=== PATIENT | female | born 1950 | race African-American/Black ===

== ENCOUNTER → 2017-04-12 | Outpatient (CLI) | payer MEDICARE ==
[~2017-04-12] VITALS: Ht 170.2 cm; Wt 61.0 kg
[~2017-04-12] MED LIST: AMIT25TA9 PO; AMLO-512 PO; ASPI-556 PO; AUD NEB; BUME1TAB30 PO; CARV25 PO; CLOP75 PO; COMBISP IH; DOCU250C91 PO; EXEM25 PO; FLUT1AER PO; LOSA50TA37 PO; PERCT10 PO; PREG50 PO; ROSU20 PO; SPIR25 PO; TIOT185 IH; ZOLP10 PO
[2017-04-12 11:57] VITALS: BP 86/61
== END | disposition home or self-care (01) ==
LOC: SRCNTR 11:40
PROVIDERS: ATTEND Internal Medicine
DX: I11.0 Hypertensive heart disease with heart failure (principal); I50.9 Heart failure, unspecified; G47.33 Obstructive sleep apnea (adult) (pediatric); I25.10 Atherosclerotic heart disease of native coronary artery without angina pectoris; C50.919 Malignant neoplasm of unspecified site of unspecified female breast; J44.1 Chronic obstructive pulmonary disease with (acute) exacerbation; Z95.5 Presence of coronary angioplasty implant and graft
CPT/HCPCS: G0463

== ENCOUNTER → 2017-05-24 | Outpatient (CLI) | payer MEDICARE | END | disposition home or self-care (01) | LOC: RESP 13:53 | PROVIDERS: ATTEND Internal Medicine | DX: J44.9 Chronic obstructive pulmonary disease, unspecified (principal) | CPT/HCPCS: 94010; 94726; 94727; 94729 ==

== ENCOUNTER 2017-07-20 07:53 | Inpatient (IN) | payer MEDICARE ==
[~2017-07-20] VITALS: Ht 165.1 cm; Wt 76.4 kg
[~2017-07-20 07:53] MED LIST changes: +ACET-2902 PO; +APIX5TAB PO; +BISA5TAB12 PO; +BUDE0.5A3 NEB; -BUME1TAB30 PO; +DIGO125T PO; +FAMO20 PO; -FLUT1AER PO; +FURO40TA5 PO; +HYDR-305 PO; +HYDR25TA84 PO; +ISOS60TA4 PO; -LOSA50TA37 PO; -PERCT10 PO; +PRED1 PO; +SENN-175 PO; -SPIR25 PO; -TIOT185 IH; -ZOLP10 PO; +ZOLP10TA7 PO
[2017-07-20] MEDS ORDERED: ATOR40TA28 PO (08:05)
[2017-07-20] MEDS ORDERED: PERCT PO (08:05)
[2017-07-20] MEDS ORDERED: LOSA50TA37 PO (08:05)
[2017-07-20] MEDS ORDERED: NORT10 PO (08:05)
[2017-07-20] MEDS ORDERED: AMOX1TAB16 PO (08:05)
[2017-07-20] MEDS ORDERED: SPIR25 PO (08:06)
[2017-07-20] MEDS ORDERED: ROSU20 PO (08:06)
[2017-07-20] MEDS ORDERED: PROPOFOL 1000 MG/ISO-OSM 100 ML IV PRN (08:15)
[2017-07-20 08:16] LABS: BASOPHILS % (AUTO) 0.2 % (0.0-2.0); EOSINOPHILS % (AUTO) 0.3 % (1.0-6.0); HEMATOCRIT 38.1 % (36-46); HEMOGLOBIN 12.3 g/dL (12.0-16.0); LYMPHOCYTES % (AUTO) 25.1 % (22.0-44.0); MEAN CORPUSCULAR HEMOGLOBIN 33.6 pg (26.0-34.0); MEAN CORPUSCULAR HGB CONC 32.2 G/dL (31.0-37.0); MEAN CORPUSCULAR VOLUME 104 fL (80-100); NEUTROPHILS # (AUTO) 13.9 K/uL (1.8-7.7); NEUTROPHILS % (AUTO) 69.4 % (40.0-70.0); PLATELET COUNT (AUTO) 182 K/uL (150-450); RED BLOOD CELL COUNT(AUTO) 3.66 MIL/uL (4.00-5.20); RED CELL DISTRIBUTION WIDTH 15.2 % (11.5-14.5); WHITE BLOOD COUNT (AUTO) 20.1 K/uL (4.5-11.0)
[2017-07-20 08:23] LABS: RBC MORPHOLOGY COMMENT ABNORMAL RBC MORPH
[2017-07-20 08:28] LABS: INR 1.2 (0.9-1.1); PROTHROMBIN TIME 12.7 SEC (9.4-11.6)
[2017-07-20 08:30] LABS: ANION GAP 13 mmol/L (8-16); CALCIUM, TOTAL 8.5 mg/dL (8.8-10.5); CARBON DIOXIDE 25 mmol/L (22-29); CHLORIDE 105 mmol/L (98-107); CREATININE 1.27 mg/dL (0.60-1.30); GLOMERULAR FILTR. RATE CALC 51 mL/min (>60); SODIUM SERUM 143 mmol/L (136-145); UREA NITROGEN, BLOOD 19 mg/dL (7-18)
[2017-07-20 08:37] LABS: B-TYPE NATRIURETIC PEPTIDE 1590 pg/mL (0-100)
[2017-07-20 08:58] LABS: ALANINE AMINOTRANSFERASE 219 U/L (12-78); ALBUMIN 2.5 g/dL (3.4-5.0); ASPARTATE AMINOTRANSFERASE 177 U/L (15-37); BILIRUBIN,TOTAL 0.5 mg/dL (0.1-1.0); CREATINE KINASE MB 3.4 ng/mL (0-5); CREATINE KINASE, TOTAL 79 U/L (26-192); TOTAL PROTEIN, SERUM 5.2 g/dL (6.4-8.2)
[2017-07-20] MEDS ORDERED: ALBUTEROL SULFATE 5 MG/ML 20 ML NEB SOLN [BULK] NEB ONE (09:00)
[2017-07-20] MEDS ORDERED: IPRATROPIUM BROMIDE 0.5 MG/2.5 ML NEB SOLUTION NEB ONE (09:00)
[2017-07-20] MEDS ORDERED: 0.9% SODIUM CHLORIDE 5 ML NEB SOLUTION NEB ONE (09:01)
[2017-07-20] MEDS ORDERED: PIPERACILLIN/TAZO 3.375 GM/D5W 50 ML IV ONE (09:15)
[2017-07-20] MEDS ORDERED: VANCOMYCIN HCL 1 GM/D5% WATER 200 ML IV ONE (09:15)
[2017-07-20 09:36] LABS: APPEARANCE,URINE CLOUDY (CLEAR); GLUCOSE, URINE (UA) 250 mg/dL (NEGATIVE); KETONES,URINE NEGATIVE (NEGATIVE); LEUKOCYTE ESTERASE ,URINE TRACE (NEGATIVE); OCCULT BLOOD,URINE LARGE (NEGATIVE); PROTEIN,URINE SEE CONFIRM (NEGATIVE)
[2017-07-20 09:41] LABS: ADD UA MICROSCOPIC YES
[2017-07-20 09:47] LABS: RBC,URINE >100 /HPF (0-2); SULFOSALICYLIC ACID,URINE 3+ (Negative)
[2017-07-20 09:48] LABS: TRANSITIONAL EPI CELLS,URINE Few /LPF (None Seen)
[2017-07-20 09:49] LABS: COARSE GRANULAR CASTS,URINE 0-2 /LPF (None Seen)
[2017-07-20] MEDS ORDERED: MIDAZOLAM HCL 100 MG in DEXTROSE 5%-WATER 180 ML IV PRN (09:52)
[2017-07-20 10:00] LABS: LACTIC ACID 11.6 mmol/L (0.4-2.0)
[2017-07-20] MEDS ORDERED: DEXTROSE 50%-WATER 25 GM/50 ML SYRINGE IVP PRN (10:15)
[2017-07-20] MEDS: ASPIRIN 81 MG CHEWABLE TABLET PO SCH (10:15)
[2017-07-20 10:27] LABS: ABG A-A DIFF O2 486.4 mmHg (10-20.0); ABG BASE EXCESS -2.7 mmol/L (-2.0-3.0); ABG HCO3 20.6 mmol/L (22.0-26.0); ABG OXYHEMOGLOBIN 96.3 % (94.0-100.0); ABG PCO2 89 mmHg (35-45); ABG PH 7.097 (7.35-7.450); ALLEN TEST, BLOOD GAS Positive; TEMPERATURE, FAHRENHEIT, BG 98.1 FAHREN (96.0-98.6)
[2017-07-20] MEDS: FentaNYL CITRATE PF 500 MCG in DEXTROSE 5%-WATER 90 ML IV PRN ×2 (10:29→23:58)
[2017-07-20] MEDS: ATORVASTATIN CALCIUM 20 MG TABLET PO SCH (10:57)
[2017-07-20 11:11] LABS: REFLEX LACTIC ACID? YES YES
[2017-07-20] MEDS ORDERED: SODIUM CHLORIDE 0.9% 1,000 ML IV ONE (12:00)
[2017-07-20] MEDS: MethylPREDNISolone SOD SUCC 125 MG/2 ML VIAL IVP SCH ×3 (12:00→23:57)
[2017-07-20 12:04] LABS: CREATINE KINASE MB 6.2 ng/mL (0-5)
[2017-07-20 13:24] VITALS: BP 116/25
[2017-07-20 14:00] VITALS: BP 124/44
[2017-07-20 15:59] LABS: ABG A-A DIFF O2 466.9 mmHg (10-20.0); ABG BASE EXCESS -3.8 mmol/L (-2.0-3.0); ABG HCO3 19.9 mmol/L (22.0-26.0); ABG OXYHEMOGLOBIN 98.7 % (94.0-100.0); TEMPERATURE, FAHRENHEIT, BG 92.1 FAHREN (96.0-98.6)
[2017-07-20 16:00] VITALS: BP 142/40
[2017-07-20 16:00] LABS: ABG PCO2 73 mmHg (35-45); ABG PH 7.144 (7.35-7.450); ALLEN TEST, BLOOD GAS Positive
[2017-07-20] MEDS ORDERED: SODIUM CHLORIDE 0.9% 250 ML IV ONE (16:15)
[2017-07-20] MEDS: PIPERACILLIN/TAZO 3.375 GM/D5W 50 ML IV SCH ×2 (16:32→22:20)
[2017-07-20] MEDS: PROPOFOL 1000 MG/ISO-OSM 100 ML IV PRN ×2 (16:36→22:21)
[2017-07-20] MEDS ORDERED: PNEUMOCOCCAL VACCINE POLYVALENT 0.5 ML VIAL [PPSV23] IM ONE (17:00)
[2017-07-20 17:15] LABS: ALANINE AMINOTRANSFERASE 299 U/L (12-78); ALBUMIN 2.9 g/dL (3.4-5.0); ANION GAP 3 mmol/L (8-16); ASPARTATE AMINOTRANSFERASE 134 U/L (15-37); BILIRUBIN,TOTAL 0.5 mg/dL (0.1-1.0); CALCIUM, TOTAL 8.2 mg/dL (8.8-10.5); CARBON DIOXIDE 32 mmol/L (22-29); CHLORIDE 108 mmol/L (98-107); CREATININE 0.83 mg/dL (0.60-1.30); GLOMERULAR FILTR. RATE CALC > 60 mL/min (>60); PHOSPHORUS 4.6 mg/dL (2.5-4.9); POTASSIUM 4.4 mmol/L (3.5-5.1); SODIUM SERUM 143 mmol/L (136-145); TOTAL PROTEIN, SERUM 5.7 g/dL (6.4-8.2); UREA NITROGEN, BLOOD 21 mg/dL (7-18)
[2017-07-20 18:00] VITALS: BP 96/60
[2017-07-20 19:25] LABS: CREATINE KINASE MB 9.6 ng/mL (0-5)
[2017-07-20 20:00] VITALS: BP 110/60
[2017-07-20 20:10] LABS: ABG A-A DIFF O2 351.2 mmHg (10-20.0); ABG BASE EXCESS -2.6 mmol/L (-2.0-3.0); ABG HCO3 22.5 mmol/L (22.0-26.0); ABG OXYHEMOGLOBIN 97.1 % (94.0-100.0); ABG PCO2 39 mmHg (35-45); ABG PH 7.376 (7.35-7.450); TEMPERATURE, FAHRENHEIT, BG 96.8 FAHREN (96.0-98.6)
[2017-07-20 20:11] LABS: ALLEN TEST, BLOOD GAS Positive
[2017-07-20 20:12] LABS: INSIPIRATORY PRESSURE, BG 26 cm H2O
[2017-07-20] MEDS: DOCUSATE SODIUM 100 MG CAPSULE PO SCH (22:20)
[2017-07-20 23:06] LABS: ALANINE AMINOTRANSFERASE 227 U/L (12-78); ALBUMIN 2.8 g/dL (3.4-5.0); ANION GAP 7 mmol/L (8-16); ASPARTATE AMINOTRANSFERASE 79 U/L (15-37); BILIRUBIN,TOTAL 0.7 mg/dL (0.1-1.0); CALCIUM, TOTAL 8.6 mg/dL (8.8-10.5); CARBON DIOXIDE 30 mmol/L (22-29); CHLORIDE 107 mmol/L (98-107); CREATININE 0.73 mg/dL (0.60-1.30); GLOMERULAR FILTR. RATE CALC > 60 mL/min (>60); PHOSPHORUS 4.5 mg/dL (2.5-4.9); POTASSIUM 4.1 mmol/L (3.5-5.1); SODIUM SERUM 144 mmol/L (136-145); TOTAL PROTEIN, SERUM 5.5 g/dL (6.4-8.2); UREA NITROGEN, BLOOD 19 mg/dL (7-18)
[2017-07-21] VITALS: BP 104/70
[2017-07-21 03:40] LABS: CREATINE KINASE MB 12.2 ng/mL (0-5); CREATINE KINASE, TOTAL 127 U/L (26-192)
[2017-07-21 04:00] VITALS: BP 118/74
[2017-07-21] MEDS: MethylPREDNISolone SOD SUCC 125 MG/2 ML VIAL IVP SCH ×3 (04:53→17:11)
[2017-07-21] MEDS: PIPERACILLIN/TAZO 3.375 GM/D5W 50 ML IV SCH ×4 (04:53→22:27)
[2017-07-21 04:59] LABS: HEMATOCRIT 41.3 % (36-46); HEMOGLOBIN 13.9 g/dL (12.0-16.0); MEAN CORPUSCULAR HEMOGLOBIN 33.8 pg (26.0-34.0); MEAN CORPUSCULAR HGB CONC 33.6 G/dL (31.0-37.0); MEAN CORPUSCULAR VOLUME 101 fL (80-100); PLATELET COUNT (AUTO) 151 K/uL (150-450); RED CELL DISTRIBUTION WIDTH 14.7 % (11.5-14.5); WHITE BLOOD COUNT (AUTO) 27.1 K/uL (4.5-11.0)
[2017-07-21 05:45] LABS: ALANINE AMINOTRANSFERASE 181 U/L (12-78); ANION GAP 18 mmol/L (8-16); ASPARTATE AMINOTRANSFERASE 68 U/L (15-37); BILIRUBIN,TOTAL 0.9 mg/dL (0.1-1.0); CARBON DIOXIDE 22 mmol/L (22-29); CHLORIDE 108 mmol/L (98-107); POTASSIUM 4.3 mmol/L (3.5-5.1); SODIUM SERUM 148 mmol/L (136-145); TOTAL PROTEIN, SERUM 5.5 g/dL (6.4-8.2)
[2017-07-21] MEDS ORDERED: ALBUMIN HUMAN 25%-12.5GM/50ML 100 ML ONE (05:48)
[2017-07-21 05:53] LABS: ABG A-A DIFF O2 275.7 mmHg (10-20.0); ABG BASE EXCESS -1.6 mmol/L (-2.0-3.0); ABG HCO3 22.7 mmol/L (22.0-26.0); ABG OXYHEMOGLOBIN 92.4 % (94.0-100.0); ABG PCO2 47 mmHg (35-45); ABG PH 7.334 (7.35-7.450); TEMPERATURE, FAHRENHEIT, BG 96.8 FAHREN (96.0-98.6)
[2017-07-21 05:55] LABS: PHOSPHORUS 4.4 mg/dL (2.5-4.9); THYROID STIMULATING HORMONE 0.13 uIU/mL (0.36-3.74)
[2017-07-21 05:55] LABS: ALLEN TEST, BLOOD GAS Positive
[2017-07-21] MEDS ORDERED: ALBUMIN HUMAN 25%-25GM/100ML 100 ML IV ONE (06:00)
[2017-07-21 06:08] LABS: ALBUMIN 2.8 g/dL (3.4-5.0); CALCIUM, TOTAL 8.4 mg/dL (8.8-10.5); CREATININE 0.83 mg/dL (0.60-1.30); GLOMERULAR FILTR. RATE CALC > 60 mL/min (>60); UREA NITROGEN, BLOOD 20 mg/dL (7-18)
[2017-07-21] MEDS: ALBUMIN HUMAN 25%-12.5GM/50ML 50 ML IV SCH ×4 (06:31→17:09)
[2017-07-21 08:00] VITALS: BP 153/107
[2017-07-21] MEDS ORDERED: VANCOMYCIN HCL 1.25 GM in DEXTROSE 5%-WATER 250 ML IV SCH (08:00)
[2017-07-21 08:01] LABS: BAND NEUTROPHILS % (MANUAL) 21 % (1-5); LYMPHOCYTES % (MANUAL) 11 % (22-44); TOTAL CELLS COUNTED 100
[2017-07-21] MEDS: FentaNYL CITRATE PF 500 MCG in DEXTROSE 5%-WATER 90 ML IV PRN ×2 (09:23→21:30)
[2017-07-21] MEDS: PANTOPRAZOLE SODIUM 40 MG/VIAL IVP SCH (09:24)
[2017-07-21] MEDS: VANCOMYCIN HCL 1 GM/D5% WATER 200 ML IV SCH ×2 (09:24→20:24)
[2017-07-21] MEDS: ATORVASTATIN CALCIUM 20 MG TABLET PO SCH (09:24)
[2017-07-21] MEDS: DOCUSATE SODIUM 100 MG CAPSULE PO SCH ×2 (09:25→20:24)
[2017-07-21] MEDS: ASPIRIN 81 MG CHEWABLE TABLET PO SCH (09:25)
[2017-07-21] MEDS: ENOXAPARIN SODIUM 40 MG/0.4 ML PF SYRINGE SQ SCH (09:25)
[2017-07-21 09:44] LABS: ABG A-A DIFF O2 288.1 mmHg (10-20.0); ABG BASE EXCESS 2.9 mmol/L (-2.0-3.0); ABG HCO3 25.9 mmol/L (22.0-26.0); ABG OXYHEMOGLOBIN 91.6 % (94.0-100.0); ABG PCO2 50 mmHg (35-45); ABG PH 7.369 (7.35-7.450); ALLEN TEST, BLOOD GAS Positive; TEMPERATURE, FAHRENHEIT, BG 92.3 FAHREN (96.0-98.6)
[2017-07-21 09:45] LABS: INSIPIRATORY PRESSURE, BG 26 cm H2O
[2017-07-21] MEDS ORDERED: SODIUM CHLORIDE 0.9% 500 ML IV ONE (10:13)
[2017-07-21 11:22] LABS: ALANINE AMINOTRANSFERASE 183 U/L (12-78); ALBUMIN 3.3 g/dL (3.4-5.0); ANION GAP 8 mmol/L (8-16); ASPARTATE AMINOTRANSFERASE 41 U/L (15-37); BILIRUBIN,TOTAL 1.1 mg/dL (0.1-1.0); CALCIUM, TOTAL 8.6 mg/dL (8.8-10.5); CARBON DIOXIDE 32 mmol/L (22-29); CHLORIDE 106 mmol/L (98-107); CREATININE 0.88 mg/dL (0.60-1.30); GLOMERULAR FILTR. RATE CALC > 60 mL/min (>60); POTASSIUM 4.2 mmol/L (3.5-5.1); SODIUM SERUM 146 mmol/L (136-145); TOTAL PROTEIN, SERUM 5.9 g/dL (6.4-8.2); UREA NITROGEN, BLOOD 19 mg/dL (7-18)
[2017-07-21 12:00] VITALS: BP 121/41
[2017-07-21] MEDS: BUDESONIDE 0.5 MG/2 ML NEB SOLUTION NEB SCH ×2 (12:02→21:21)
[2017-07-21 12:23] LABS: ABG A-A DIFF O2 365.4 mmHg (10-20.0); ABG BASE EXCESS -0.8 mmol/L (-2.0-3.0); ABG HCO3 23.6 mmol/L (22.0-26.0); ABG OXYHEMOGLOBIN 96.7 % (94.0-100.0); ABG PCO2 41 mmHg (35-45); ABG PH 7.388 (7.35-7.450); ALLEN TEST, BLOOD GAS Positive; TEMPERATURE, FAHRENHEIT, BG 94.2 FAHREN (96.0-98.6)
[2017-07-21 12:24] LABS: INSIPIRATORY PRESSURE, BG 26 cm H2O
[2017-07-21] MEDS: NOREPINEPHRINE 4 MG/D5%-WATER 250 ML IV PRN (14:11)
[2017-07-21 16:00] VITALS: BP 133/43
[2017-07-21] MEDS: PROPOFOL 1000 MG/ISO-OSM 100 ML IV PRN ×2 (17:11→22:27)
[2017-07-21 17:31] LABS: ALANINE AMINOTRANSFERASE 166 U/L (12-78); ALBUMIN 3.6 g/dL (3.4-5.0); ANION GAP 12 mmol/L (8-16); ASPARTATE AMINOTRANSFERASE 35 U/L (15-37); BILIRUBIN,TOTAL 1.1 mg/dL (0.1-1.0); CARBON DIOXIDE 29 mmol/L (22-29); CHLORIDE 104 mmol/L (98-107); CREATININE 0.74 mg/dL (0.60-1.30); GLOMERULAR FILTR. RATE CALC > 60 mL/min (>60); PHOSPHORUS 4.9 mg/dL (2.5-4.9); POTASSIUM 4.2 mmol/L (3.5-5.1); SODIUM SERUM 145 mmol/L (136-145); TOTAL PROTEIN, SERUM 6.2 g/dL (6.4-8.2); UREA NITROGEN, BLOOD 20 mg/dL (7-18)
[2017-07-21 20:00] VITALS: BP 143/76
[2017-07-21] MEDS ORDERED: ONDANSETRON HCL 4 MG/2 ML VIAL IVP PRN (20:15)
[2017-07-22] VITALS: BP 138/81
[2017-07-22] MEDS ORDERED: SODIUM CHLORIDE 0.9% 250 ML IV ONE ×3 (00:01→21:30)
[2017-07-22] MEDS: MethylPREDNISolone SOD SUCC 125 MG/2 ML VIAL IVP SCH ×4 (00:05→16:52)
[2017-07-22] MEDS: ALBUMIN HUMAN 25%-12.5GM/50ML 50 ML IV SCH ×4 (00:06→16:52)
[2017-07-22] MEDS: PROPOFOL 1000 MG/ISO-OSM 100 ML IV PRN ×6 (01:28→23:49)
[2017-07-22 04:00] VITALS: BP 134/74
[2017-07-22] MEDS: PIPERACILLIN/TAZO 3.375 GM/D5W 50 ML IV SCH ×4 (04:27→21:36)
[2017-07-22 06:16] LABS: ANION GAP 10 mmol/L (8-16); CALCIUM, TOTAL 8.7 mg/dL (8.8-10.5); CARBON DIOXIDE 30 mmol/L (22-29); CHLORIDE 103 mmol/L (98-107); CREATININE 0.83 mg/dL (0.60-1.30); GLOMERULAR FILTR. RATE CALC > 60 mL/min (>60); POTASSIUM 3.1 mmol/L (3.5-5.1); SODIUM SERUM 143 mmol/L (136-145); UREA NITROGEN, BLOOD 20 mg/dL (7-18)
[2017-07-22] MEDS: FentaNYL CITRATE PF 500 MCG in DEXTROSE 5%-WATER 90 ML IV PRN ×3 (06:21→18:17)
[2017-07-22 08:00] VITALS: BP 159/89
[2017-07-22] MEDS: BUDESONIDE 0.5 MG/2 ML NEB SOLUTION NEB SCH ×2 (08:10→21:32)
[2017-07-22] MEDS: VANCOMYCIN HCL 1 GM/D5% WATER 200 ML IV SCH ×2 (09:20→19:36)
[2017-07-22] MEDS: POTASSIUM CHLORIDE 20 MEQ ER TABLET PO PRN ×2 (09:22→16:52)
[2017-07-22] MEDS: DOCUSATE SODIUM 100 MG CAPSULE PO SCH ×2 (09:22→21:36)
[2017-07-22] MEDS: ENOXAPARIN SODIUM 40 MG/0.4 ML PF SYRINGE SQ SCH (09:22)
[2017-07-22] MEDS: ATORVASTATIN CALCIUM 20 MG TABLET PO SCH (09:22)
[2017-07-22] MEDS: ASPIRIN 81 MG CHEWABLE TABLET PO SCH (09:22)
[2017-07-22] MEDS: PANTOPRAZOLE SODIUM 40 MG/VIAL IVP SCH (09:23)
[2017-07-22 10:52] LABS: ABG A-A DIFF O2 230.1 mmHg (10-20.0); ABG BASE EXCESS 3.8 mmol/L (-2.0-3.0); ABG HCO3 28.1 mmol/L (22.0-26.0); ABG OXYHEMOGLOBIN 96.5 % (94.0-100.0); ABG PCO2 33 mmHg (35-45); ABG PH 7.527 (7.35-7.450); TEMPERATURE, FAHRENHEIT, BG 99.5 FAHREN (96.0-98.6)
[2017-07-22 10:53] LABS: ALLEN TEST, BLOOD GAS Positive
[2017-07-22 12:00] VITALS: BP 138/76
[2017-07-22 16:00] VITALS: BP 162/104
[2017-07-22] MEDS ORDERED: POTASSIUM CHLORIDE 20 MEQ ER TABLET PO PRN ×2 (19:15)
[2017-07-22 20:00] VITALS: BP 141/80
[2017-07-22] MEDS: POTASSIUM CHL 10 MEQ/WATER 50 ML IV PRN ×3 (21:36→22:46)
[2017-07-23] VITALS: BP 139/79
[2017-07-23] MEDS: ALBUMIN HUMAN 25%-12.5GM/50ML 50 ML IV SCH ×4 (00:37→17:46)
[2017-07-23] MEDS: MethylPREDNISolone SOD SUCC 125 MG/2 ML VIAL IVP SCH ×4 (00:37→17:46)
[2017-07-23] MEDS: FentaNYL CITRATE PF 500 MCG in DEXTROSE 5%-WATER 90 ML IV PRN ×4 (01:30→20:15)
[2017-07-23] MEDS: PROPOFOL 1000 MG/ISO-OSM 100 ML IV PRN ×5 (03:37→19:42)
[2017-07-23] MEDS: PIPERACILLIN/TAZO 3.375 GM/D5W 50 ML IV SCH ×4 (03:38→22:24)
[2017-07-23 04:00] VITALS: BP 137/82
[2017-07-23 07:07] LABS: ANION GAP 9 mmol/L (8-16); CALCIUM, TOTAL 8.9 mg/dL (8.8-10.5); CARBON DIOXIDE 28 mmol/L (22-29); CHLORIDE 104 mmol/L (98-107); CREATININE 0.76 mg/dL (0.60-1.30); GLOMERULAR FILTR. RATE CALC > 60 mL/min (>60); POTASSIUM 3.4 mmol/L (3.5-5.1); SODIUM SERUM 141 mmol/L (136-145); UREA NITROGEN, BLOOD 20 mg/dL (7-18)
[2017-07-23 08:00] VITALS: BP 142/90
[2017-07-23] MEDS: ENOXAPARIN SODIUM 40 MG/0.4 ML PF SYRINGE SQ SCH (08:22)
[2017-07-23] MEDS: ASPIRIN 81 MG CHEWABLE TABLET PO SCH (08:22)
[2017-07-23] MEDS: ATORVASTATIN CALCIUM 20 MG TABLET PO SCH (08:22)
[2017-07-23] MEDS: DOCUSATE SODIUM 100 MG CAPSULE PO SCH ×2 (08:22→20:00)
[2017-07-23] MEDS: VANCOMYCIN HCL 1 GM/D5% WATER 200 ML IV SCH ×2 (08:22→20:00)
[2017-07-23] MEDS: PANTOPRAZOLE SODIUM 40 MG/VIAL IVP SCH (08:22)
[2017-07-23] MEDS: POTASSIUM CHL 10 MEQ/WATER 50 ML IV PRN ×5 (08:47→16:55)
[2017-07-23] MEDS: BUDESONIDE 0.5 MG/2 ML NEB SOLUTION NEB SCH ×2 (08:52→19:32)
[2017-07-23 10:55] LABS: TEMPERATURE, FAHRENHEIT, BG 98.6 FAHREN (96.0-98.6)
[2017-07-23 11:40] LABS: ABG BASE EXCESS 2.8 mmol/L (-2.0-3.0); ABG HCO3 26.8 mmol/L (22.0-26.0); ABG OXYHEMOGLOBIN 94.2 % (94.0-100.0); ABG PCO2 40 mmHg (35-45); ABG PH 7.448 (7.35-7.450)
[2017-07-23 11:41] LABS: ALLEN TEST, BLOOD GAS Positive
[2017-07-23 11:42] LABS: INSIPIRATORY PRESSURE, BG 22 cm H2O
[2017-07-23 12:00] VITALS: BP 154/90
[2017-07-23 16:00] VITALS: BP 136/81
[2017-07-23] MEDS: INSULIN REGULAR, HUMAN 100 UNITS/ML SQ PRN (17:47)
[2017-07-23] MEDS ORDERED: SODIUM CHLORIDE 0.9% 250 ML IV ONE ×2 (18:04→18:05)
[2017-07-23] MEDS ORDERED: 0.9% SODIUM CHLORIDE 5 ML NEB SOLUTION NEB ONE (19:29)
[2017-07-23 20:00] VITALS: BP 154/99
[2017-07-24] VITALS: BP 142/84
[2017-07-24] MEDS: MethylPREDNISolone SOD SUCC 125 MG/2 ML VIAL IVP SCH ×5 (00:10→23:26)
[2017-07-24] MEDS: INSULIN REGULAR, HUMAN 100 UNITS/ML SQ PRN ×5 (00:11→23:35)
[2017-07-24] MEDS: ALBUMIN HUMAN 25%-12.5GM/50ML 50 ML IV SCH ×5 (00:11→23:26)
[2017-07-24] MEDS: PROPOFOL 1000 MG/ISO-OSM 100 ML IV PRN ×7 (00:21→23:47)
[2017-07-24 04:00] VITALS: BP 133/78
[2017-07-24] MEDS: FentaNYL CITRATE PF 500 MCG in DEXTROSE 5%-WATER 90 ML IV PRN ×4 (04:02→20:52)
[2017-07-24] MEDS: PIPERACILLIN/TAZO 3.375 GM/D5W 50 ML IV SCH ×4 (04:03→21:55)
[2017-07-24 05:06] LABS: EOSINOPHILS % (AUTO) 0 % (1.0-6.0); HEMATOCRIT 29.5 % (36-46); HEMOGLOBIN 9.8 g/dL (12.0-16.0); LYMPHOCYTES # (AUTO) 0.7 K/uL (1.0-4.8); LYMPHOCYTES % (AUTO) 2.8 % (22.0-44.0); MEAN CORPUSCULAR HEMOGLOBIN 33.5 pg (26.0-34.0); MEAN CORPUSCULAR HGB CONC 33.4 G/dL (31.0-37.0); MEAN CORPUSCULAR VOLUME 100 fL (80-100); MONOCYTES # (AUTO) 0.8 K/uL (0.1-1.0); MONOCYTES % (AUTO) 3.2 % (2.0-9.0); NEUTROPHILS # (AUTO) 21.7 K/uL (1.8-7.7); PLATELET COUNT (AUTO) 123 K/uL (150-450); RED BLOOD CELL COUNT(AUTO) 2.94 MIL/uL (4.00-5.20); RED CELL DISTRIBUTION WIDTH 15.1 % (11.5-14.5); WHITE BLOOD COUNT (AUTO) 23.1 K/uL (4.5-11.0)
[2017-07-24 05:14] LABS: NEUTROPHILS % (AUTO) 93.9 % (40.0-70.0)
[2017-07-24 05:24] LABS: ANION GAP 5 mmol/L (8-16); CALCIUM, TOTAL 9.2 mg/dL (8.8-10.5); CARBON DIOXIDE 31 mmol/L (22-29); CHLORIDE 104 mmol/L (98-107); CREATININE 0.81 mg/dL (0.60-1.30); GLOMERULAR FILTR. RATE CALC > 60 mL/min (>60); POTASSIUM 3.8 mmol/L (3.5-5.1); SODIUM SERUM 140 mmol/L (136-145); UREA NITROGEN, BLOOD 20 mg/dL (7-18)
[2017-07-24] MEDS: MAGNESIUM HYDROXIDE SUSPENSION 30 ML UDCUP PO PRN (05:57)
[2017-07-24] MEDS: METOCLOPRAMIDE HCL 5 MG/ML 2 ML VIAL IVP SCH ×4 (05:57→23:26)
[2017-07-24 06:48] LABS: RBC MORPHOLOGY COMMENT ABNORMAL RBC MORPH
[2017-07-24 06:52] LABS: GLUCOSE COMMENT 1 Received Meds; GLUCOSE,POINT OF CARE 171 MG/DL (70-110)
[2017-07-24 06:52] LABS: GLUCOSE,POINT OF CARE 167 MG/DL (70-110)
[2017-07-24 08:00] VITALS: BP 106/69
[2017-07-24] MEDS: BUDESONIDE 0.5 MG/2 ML NEB SOLUTION NEB SCH ×2 (08:45→19:35)
[2017-07-24] MEDS: VANCOMYCIN HCL 1 GM/D5% WATER 200 ML IV SCH ×2 (08:49→19:24)
[2017-07-24] MEDS: ENOXAPARIN SODIUM 40 MG/0.4 ML PF SYRINGE SQ SCH (09:04)
[2017-07-24] MEDS: ASPIRIN 81 MG CHEWABLE TABLET PO SCH (09:04)
[2017-07-24] MEDS: POTASSIUM CHL 10 MEQ/WATER 50 ML IV PRN ×2 (09:04→10:12)
[2017-07-24] MEDS: PANTOPRAZOLE SODIUM 40 MG/VIAL IVP SCH (09:04)
[2017-07-24] MEDS: DOCUSATE SODIUM 100 MG CAPSULE PO SCH ×2 (09:05→20:42)
[2017-07-24] MEDS: ATORVASTATIN CALCIUM 20 MG TABLET PO SCH (09:05)
[2017-07-24 12:00] VITALS: BP 136/86
[2017-07-24 16:00] VITALS: BP 154/90
[2017-07-24] MEDS ORDERED: 0.9% SODIUM CHLORIDE 5 ML NEB SOLUTION NEB ONE (19:31)
[2017-07-24 20:00] VITALS: BP 163/98
[2017-07-24 23:52] LABS: GLUCOSE COMMENT 1 Received Meds; GLUCOSE,POINT OF CARE 186 MG/DL (70-110)
[2017-07-25] VITALS: BP 140/78
[2017-07-25] MEDS: FentaNYL CITRATE PF 500 MCG in DEXTROSE 5%-WATER 90 ML IV PRN ×4 (02:32→21:10)
[2017-07-25] MEDS: PIPERACILLIN/TAZO 3.375 GM/D5W 50 ML IV SCH ×4 (03:44→21:36)
[2017-07-25] MEDS: PROPOFOL 1000 MG/ISO-OSM 100 ML IV PRN ×4 (03:46→21:10)
[2017-07-25 04:00] VITALS: BP 132/60
[2017-07-25] MEDS: INSULIN REGULAR, HUMAN 100 UNITS/ML SQ PRN ×2 (04:24→16:39)
[2017-07-25] MEDS: ALBUMIN HUMAN 25%-12.5GM/50ML 50 ML IV SCH ×3 (05:10→17:02)
[2017-07-25] MEDS: MethylPREDNISolone SOD SUCC 125 MG/2 ML VIAL IVP SCH ×3 (05:10→17:02)
[2017-07-25] MEDS: METOCLOPRAMIDE HCL 5 MG/ML 2 ML VIAL IVP SCH ×3 (05:23→17:02)
[2017-07-25 05:29] LABS: HEMATOCRIT 28.6 % (36-46); HEMOGLOBIN 9.6 g/dL (12.0-16.0); MEAN CORPUSCULAR HEMOGLOBIN 33.6 pg (26.0-34.0); MEAN CORPUSCULAR HGB CONC 33.7 G/dL (31.0-37.0); MEAN CORPUSCULAR VOLUME 100 fL (80-100); PLATELET COUNT (AUTO) 119 K/uL (150-450); RED BLOOD CELL COUNT(AUTO) 2.87 MIL/uL (4.00-5.20); WHITE BLOOD COUNT (AUTO) 18.7 K/uL (4.5-11.0)
[2017-07-25 05:47] LABS: ANION GAP 6 mmol/L (8-16); CALCIUM, TOTAL 8.9 mg/dL (8.8-10.5); CARBON DIOXIDE 31 mmol/L (22-29); CHLORIDE 105 mmol/L (98-107); CREATININE 0.74 mg/dL (0.60-1.30); GLOMERULAR FILTR. RATE CALC > 60 mL/min (>60); PHOSPHORUS 3.2 mg/dL (2.5-4.9); POTASSIUM 3.9 mmol/L (3.5-5.1); SODIUM SERUM 142 mmol/L (136-145); UREA NITROGEN, BLOOD 22 mg/dL (7-18)
[2017-07-25 08:00] VITALS: BP 125/75
[2017-07-25] MEDS: VANCOMYCIN HCL 1 GM/D5% WATER 200 ML IV SCH ×2 (08:00→21:07)
[2017-07-25] MEDS: PANTOPRAZOLE SODIUM 40 MG/VIAL IVP SCH (09:35)
[2017-07-25] MEDS: ASPIRIN 81 MG CHEWABLE TABLET PO SCH (09:35)
[2017-07-25] MEDS: DOCUSATE SODIUM 100 MG CAPSULE PO SCH ×2 (09:35→21:07)
[2017-07-25] MEDS: ATORVASTATIN CALCIUM 20 MG TABLET PO SCH (09:35)
[2017-07-25] MEDS: ENOXAPARIN SODIUM 40 MG/0.4 ML PF SYRINGE SQ SCH (09:36)
[2017-07-25] MEDS: BUDESONIDE 0.5 MG/2 ML NEB SOLUTION NEB SCH ×2 (10:16→20:42)
[2017-07-25 10:17] LABS: BAND NEUTROPHILS % (MANUAL) 3 % (1-5); EOSINOPHILS % (MANUAL) 2 % (1-6); LYMPHOCYTES % (MANUAL) 13 % (22-44); TOTAL CELLS COUNTED 100
[2017-07-25 10:18] LABS: RBC MORPHOLOGY COMMENT NORMAL RBC MORPH
[2017-07-25 12:51] VITALS: BP 156/92
[2017-07-25 16:00] VITALS: BP 108/63
[2017-07-25] MEDS ORDERED: SODIUM CHLORIDE 0.9% 250 ML IV ONE (16:22)
[2017-07-25 19:16] LABS: GLUCOSE,POINT OF CARE 169 MG/DL (70-110)
[2017-07-25 20:00] VITALS: BP 128/73
[2017-07-25] MEDS: MAGNESIUM HYDROXIDE SUSPENSION 30 ML UDCUP PO PRN (21:07)
[2017-07-26] VITALS: BP 145/79
[2017-07-26] MEDS: INSULIN REGULAR, HUMAN 100 UNITS/ML SQ PRN ×4 (00:25→18:09)
[2017-07-26] MEDS: MethylPREDNISolone SOD SUCC 125 MG/2 ML VIAL IVP SCH ×4 (00:25→18:08)
[2017-07-26] MEDS: METOCLOPRAMIDE HCL 5 MG/ML 2 ML VIAL IVP SCH ×4 (00:26→17:37)
[2017-07-26] MEDS: ALBUMIN HUMAN 25%-12.5GM/50ML 50 ML IV SCH ×4 (00:27→17:37)
[2017-07-26] MEDS: PROPOFOL 1000 MG/ISO-OSM 100 ML IV PRN ×6 (00:28→21:01)
[2017-07-26] MEDS: FentaNYL CITRATE PF 500 MCG in DEXTROSE 5%-WATER 90 ML IV PRN ×4 (03:01→21:01)
[2017-07-26] MEDS: PIPERACILLIN/TAZO 3.375 GM/D5W 50 ML IV SCH ×4 (03:01→20:59)
[2017-07-26 04:00] VITALS: BP 136/76
[2017-07-26 05:17] LABS: ANION GAP 8 mmol/L (8-16); CALCIUM, TOTAL 9.1 mg/dL (8.8-10.5); CARBON DIOXIDE 31 mmol/L (22-29); CHLORIDE 104 mmol/L (98-107); GLOMERULAR FILTR. RATE CALC > 60 mL/min (>60); PHOSPHORUS 3.3 mg/dL (2.5-4.9); POTASSIUM 3.8 mmol/L (3.5-5.1); SODIUM SERUM 143 mmol/L (136-145); UREA NITROGEN, BLOOD 20 mg/dL (7-18)
[2017-07-26 06:15] LABS: EOSINOPHILS % (AUTO) 0 % (1.0-6.0); HEMATOCRIT 29.6 % (36-46); LYMPHOCYTES # (AUTO) 0.7 K/uL (1.0-4.8); LYMPHOCYTES % (AUTO) 3.1 % (22.0-44.0); MEAN CORPUSCULAR HEMOGLOBIN 33.9 pg (26.0-34.0); MEAN CORPUSCULAR HGB CONC 33.9 G/dL (31.0-37.0); MEAN CORPUSCULAR VOLUME 100 fL (80-100); MONOCYTES # (AUTO) 1.6 K/uL (0.1-1.0); MONOCYTES % (AUTO) 7.1 % (2.0-9.0); NEUTROPHILS # (AUTO) 19.9 K/uL (1.8-7.7); PLATELET COUNT (AUTO) 129 K/uL (150-450); RED BLOOD CELL COUNT(AUTO) 2.96 MIL/uL (4.00-5.20); RED CELL DISTRIBUTION WIDTH 14.9 % (11.5-14.5); WHITE BLOOD COUNT (AUTO) 22.2 K/uL (4.5-11.0)
[2017-07-26 06:16] LABS: NEUTROPHILS % (AUTO) 89.8 % (40.0-70.0)
[2017-07-26] MEDS: VANCOMYCIN HCL 1 GM/D5% WATER 200 ML IV SCH ×2 (07:50→20:59)
[2017-07-26 08:00] VITALS: BP 133/75
[2017-07-26] MEDS: PANTOPRAZOLE SODIUM 40 MG/VIAL IVP SCH (08:48)
[2017-07-26] MEDS: DOCUSATE SODIUM 100 MG CAPSULE PO SCH ×2 (08:48→20:59)
[2017-07-26] MEDS: ASPIRIN 81 MG CHEWABLE TABLET PO SCH (08:48)
[2017-07-26] MEDS: ATORVASTATIN CALCIUM 20 MG TABLET PO SCH (08:48)
[2017-07-26] MEDS: ENOXAPARIN SODIUM 40 MG/0.4 ML PF SYRINGE SQ SCH (08:49)
[2017-07-26] MEDS: BUDESONIDE 0.5 MG/2 ML NEB SOLUTION NEB SCH ×2 (10:05→20:14)
[2017-07-26 12:00] VITALS: BP 169/109
[2017-07-26 13:25] LABS: ABG BASE EXCESS 2.9 mmol/L (-2.0-3.0); ABG HCO3 26.5 mmol/L (22.0-26.0); ABG OXYHEMOGLOBIN 88.2 % (94.0-100.0); ABG PCO2 48 mmHg (35-45); ABG PH 7.386 (7.35-7.450); TEMPERATURE, FAHRENHEIT, BG 99.7 FAHREN (96.0-98.6)
[2017-07-26 13:27] LABS: ALLEN TEST, BLOOD GAS Positive
[2017-07-26 13:28] LABS: INSIPIRATORY PRESSURE, BG 22 cm H2O
[2017-07-26 16:00] VITALS: BP 128/75
[2017-07-26 20:00] VITALS: BP 128/71
[2017-07-26] MEDS ORDERED: SODIUM CHLORIDE 0.9% 250 ML IV ONE (20:15)
[2017-07-27] VITALS (7 sets, daily range): BP systolic 118–148; BP diastolic 66–88
[2017-07-27] MEDS: METOCLOPRAMIDE HCL 5 MG/ML 2 ML VIAL IVP SCH ×5 (00:41→23:40)
[2017-07-27] MEDS: MethylPREDNISolone SOD SUCC 125 MG/2 ML VIAL IVP SCH ×5 (00:41→23:40)
[2017-07-27] MEDS: ALBUMIN HUMAN 25%-12.5GM/50ML 50 ML IV SCH ×5 (00:41→23:41)
[2017-07-27] MEDS: INSULIN REGULAR, HUMAN 100 UNITS/ML SQ PRN ×5 (00:42→23:42)
[2017-07-27] MEDS: PROPOFOL 1000 MG/ISO-OSM 100 ML IV PRN ×5 (02:37→18:37)
[2017-07-27] MEDS: FentaNYL CITRATE PF 500 MCG in DEXTROSE 5%-WATER 90 ML IV PRN ×5 (03:01→22:48)
[2017-07-27] MEDS: PIPERACILLIN/TAZO 3.375 GM/D5W 50 ML IV SCH ×4 (05:27→21:45)
[2017-07-27 07:34] LABS: ANION GAP 8 mmol/L (8-16); CARBON DIOXIDE 31 mmol/L (22-29); CHLORIDE 104 mmol/L (98-107); CREATININE 0.71 mg/dL (0.60-1.30); GLOMERULAR FILTR. RATE CALC > 60 mL/min (>60); POTASSIUM 3.6 mmol/L (3.5-5.1); SODIUM SERUM 143 mmol/L (136-145); UREA NITROGEN, BLOOD 21 mg/dL (7-18)
[2017-07-27] MEDS: VANCOMYCIN HCL 1 GM/D5% WATER 200 ML IV SCH ×2 (08:09→19:13)
[2017-07-27] MEDS: ASPIRIN 81 MG CHEWABLE TABLET PO SCH (08:10)
[2017-07-27] MEDS: ATORVASTATIN CALCIUM 20 MG TABLET PO SCH (08:10)
[2017-07-27] MEDS: DOCUSATE SODIUM 100 MG CAPSULE PO SCH ×2 (08:10→21:02)
[2017-07-27] MEDS: PANTOPRAZOLE SODIUM 40 MG/VIAL IVP SCH (08:10)
[2017-07-27] MEDS: ENOXAPARIN SODIUM 40 MG/0.4 ML PF SYRINGE SQ SCH (08:10)
[2017-07-27] MEDS: BUDESONIDE 0.5 MG/2 ML NEB SOLUTION NEB SCH ×2 (09:19→19:46)
[2017-07-27 09:51] LABS: ABG A-A DIFF O2 188.9 mmHg (10-20.0); ABG BASE EXCESS 8.7 mmol/L (-2.0-3.0); ABG HCO3 31.3 mmol/L (22.0-26.0); ABG PCO2 52 mmHg (35-45); ABG PH 7.425 (7.35-7.450); ALLEN TEST, BLOOD GAS Positive
[2017-07-27 09:52] LABS: INSIPIRATORY PRESSURE, BG 22 cm H2O
[2017-07-27] MEDS ORDERED: SODIUM CHLORIDE 0.9% 250 ML IV ONE (09:57)
[2017-07-27] MEDS: POTASSIUM CHL 10 MEQ/WATER 50 ML IV PRN ×3 (11:03→12:37)
[2017-07-28] VITALS (9 sets, daily range): BP systolic 119–157; BP diastolic 66–93
[2017-07-28] MEDS: PROPOFOL 1000 MG/ISO-OSM 100 ML IV PRN ×6 (01:07→22:09)
[2017-07-28] MEDS: PIPERACILLIN/TAZO 3.375 GM/D5W 50 ML IV SCH ×4 (03:48→22:08)
[2017-07-28] MEDS: FentaNYL CITRATE PF 500 MCG in DEXTROSE 5%-WATER 90 ML IV PRN ×5 (04:13→23:13)
[2017-07-28 05:05] LABS: HEMOGLOBIN 9.6 g/dL (12.0-16.0); MEAN CORPUSCULAR HEMOGLOBIN 33.4 pg (26.0-34.0); MEAN CORPUSCULAR HGB CONC 33.2 G/dL (31.0-37.0); MEAN CORPUSCULAR VOLUME 101 fL (80-100); PLATELET COUNT (AUTO) 98 K/uL (150-450); RED BLOOD CELL COUNT(AUTO) 2.89 MIL/uL (4.00-5.20); RED CELL DISTRIBUTION WIDTH 14.8 % (11.5-14.5); WHITE BLOOD COUNT (AUTO) 22.6 K/uL (4.5-11.0)
[2017-07-28] MEDS: METOCLOPRAMIDE HCL 5 MG/ML 2 ML VIAL IVP SCH ×4 (05:12→23:32)
[2017-07-28] MEDS: MethylPREDNISolone SOD SUCC 125 MG/2 ML VIAL IVP SCH ×4 (05:12→23:32)
[2017-07-28] MEDS: ALBUMIN HUMAN 25%-12.5GM/50ML 50 ML IV SCH ×4 (05:13→23:32)
[2017-07-28] MEDS: INSULIN REGULAR, HUMAN 100 UNITS/ML SQ PRN ×4 (05:14→23:39)
[2017-07-28 05:23] LABS: ANION GAP 5 mmol/L (8-16); CALCIUM, TOTAL 9.1 mg/dL (8.8-10.5); CARBON DIOXIDE 34 mmol/L (22-29); CHLORIDE 103 mmol/L (98-107); CREATININE 0.66 mg/dL (0.60-1.30); GLOMERULAR FILTR. RATE CALC > 60 mL/min (>60); POTASSIUM 4.2 mmol/L (3.5-5.1); SODIUM SERUM 142 mmol/L (136-145); UREA NITROGEN, BLOOD 21 mg/dL (7-18)
[2017-07-28] MEDS: BUDESONIDE 0.5 MG/2 ML NEB SOLUTION NEB SCH ×2 (07:55→22:36)
[2017-07-28] MEDS ORDERED: SODIUM CHLORIDE 0.9% 250 ML IV ONE (08:02)
[2017-07-28] MEDS: ENOXAPARIN SODIUM 40 MG/0.4 ML PF SYRINGE SQ SCH (08:05)
[2017-07-28] MEDS: VANCOMYCIN HCL 1 GM/D5% WATER 200 ML IV SCH ×2 (08:05→20:05)
[2017-07-28] MEDS: ATORVASTATIN CALCIUM 20 MG TABLET PO SCH (08:06)
[2017-07-28] MEDS: ASPIRIN 81 MG CHEWABLE TABLET PO SCH (08:06)
[2017-07-28] MEDS: PANTOPRAZOLE SODIUM 40 MG/VIAL IVP SCH (08:06)
[2017-07-28] MEDS: DOCUSATE SODIUM 100 MG CAPSULE PO SCH ×2 (08:06→20:05)
[2017-07-28 08:10] LABS: TEMPERATURE, FAHRENHEIT, BG 98.6 FAHREN (96.0-98.6)
[2017-07-28 08:18] LABS: ABG A-A DIFF O2 88.5 mmHg (10-20.0); ABG BASE EXCESS 8.7 mmol/L (-2.0-3.0); ABG HCO3 31.4 mmol/L (22.0-26.0); ABG OXYHEMOGLOBIN 98.6 % (94.0-100.0); ABG PCO2 51 mmHg (35-45); ABG PH 7.431 (7.35-7.450); ALLEN TEST, BLOOD GAS Positive
[2017-07-28 08:19] LABS: INSIPIRATORY PRESSURE, BG 22 cm H2O
[2017-07-28 08:28] LABS: BAND NEUTROPHILS % (MANUAL) 9 % (1-5); LYMPHOCYTES % (MANUAL) 13 % (22-44); TOTAL CELLS COUNTED 100
[2017-07-28 08:29] LABS: RBC MORPHOLOGY COMMENT ABNORMAL RBC MORPH
[2017-07-28 11:33] LABS: GLUCOSE,POINT OF CARE 194 MG/DL (70-110)
[2017-07-28] MEDS ORDERED: 0.9% SODIUM CHLORIDE 5 ML NEB SOLUTION NEB ONE (22:34)
[2017-07-29] VITALS (11 sets, daily range): BP systolic 120–160; BP diastolic 69–99
[2017-07-29] MEDS: PROPOFOL 1000 MG/ISO-OSM 100 ML IV PRN ×6 (01:41→23:55)
[2017-07-29] MEDS: FentaNYL CITRATE PF 500 MCG in DEXTROSE 5%-WATER 90 ML IV PRN ×5 (02:15→19:52)
[2017-07-29] MEDS: PIPERACILLIN/TAZO 3.375 GM/D5W 50 ML IV SCH ×4 (04:17→22:44)
[2017-07-29 04:33] LABS: EOSINOPHILS % (AUTO) 0.01 % (1.0-6.0); HEMATOCRIT 26.8 % (36-46); HEMOGLOBIN 9.1 g/dL (12.0-16.0); LYMPHOCYTES # (AUTO) 0.3 K/uL (1.0-4.8); LYMPHOCYTES % (AUTO) 1.4 % (22.0-44.0); MEAN CORPUSCULAR HEMOGLOBIN 33.6 pg (26.0-34.0); MEAN CORPUSCULAR HGB CONC 33.8 G/dL (31.0-37.0); MEAN CORPUSCULAR VOLUME 100 fL (80-100); MONOCYTES # (AUTO) 0.7 K/uL (0.1-1.0); MONOCYTES % (AUTO) 3.6 % (2.0-9.0); NEUTROPHILS # (AUTO) 17.9 K/uL (1.8-7.7); PLATELET COUNT (AUTO) 98 K/uL (150-450); WHITE BLOOD COUNT (AUTO) 18.8 K/uL (4.5-11.0)
[2017-07-29 04:41] LABS: ANION GAP 3 mmol/L (8-16); CALCIUM, TOTAL 8.7 mg/dL (8.8-10.5); CARBON DIOXIDE 34 mmol/L (22-29); CHLORIDE 103 mmol/L (98-107); CREATININE 0.65 mg/dL (0.60-1.30); GLOMERULAR FILTR. RATE CALC > 60 mL/min (>60); POTASSIUM 3.8 mmol/L (3.5-5.1); SODIUM SERUM 140 mmol/L (136-145); UREA NITROGEN, BLOOD 23 mg/dL (7-18)
[2017-07-29] MEDS: ALBUMIN HUMAN 25%-12.5GM/50ML 50 ML IV SCH ×4 (05:37→23:45)
[2017-07-29] MEDS: METOCLOPRAMIDE HCL 5 MG/ML 2 ML VIAL IVP SCH ×4 (05:37→23:47)
[2017-07-29] MEDS: MethylPREDNISolone SOD SUCC 125 MG/2 ML VIAL IVP SCH ×4 (05:38→23:47)
[2017-07-29] MEDS: INSULIN REGULAR, HUMAN 100 UNITS/ML SQ PRN ×4 (05:39→23:54)
[2017-07-29] MEDS: BUDESONIDE 0.5 MG/2 ML NEB SOLUTION NEB SCH ×2 (07:39→22:44)
[2017-07-29] MEDS: VANCOMYCIN HCL 1 GM/D5% WATER 200 ML IV SCH ×2 (07:55→19:51)
[2017-07-29 08:01] LABS: ABG A-A DIFF O2 158.9 mmHg (10-20.0); ABG BASE EXCESS 7.9 mmol/L (-2.0-3.0); ABG OXYHEMOGLOBIN 93.3 % (94.0-100.0); ABG PCO2 44 mmHg (35-45); ABG PH 7.474 (7.35-7.450); TEMPERATURE, FAHRENHEIT, BG 98.6 FAHREN (96.0-98.6)
[2017-07-29 08:02] LABS: ALLEN TEST, BLOOD GAS Positive; INSIPIRATORY PRESSURE, BG 22 cm H2O
[2017-07-29] MEDS: ASPIRIN 81 MG CHEWABLE TABLET PO SCH (08:42)
[2017-07-29] MEDS: PANTOPRAZOLE SODIUM 40 MG/VIAL IVP SCH (08:42)
[2017-07-29] MEDS: ENOXAPARIN SODIUM 40 MG/0.4 ML PF SYRINGE SQ SCH (08:43)
[2017-07-29] MEDS: ATORVASTATIN CALCIUM 20 MG TABLET PO SCH (08:43)
[2017-07-29] MEDS: DOCUSATE SODIUM 100 MG CAPSULE PO SCH ×2 (08:43→20:19)
[2017-07-29] MEDS ORDERED: SODIUM CHLORIDE 0.9% 250 ML IV ONE (19:49)
[2017-07-29] MEDS ORDERED: 0.9% SODIUM CHLORIDE 5 ML NEB SOLUTION NEB ONE (22:42)
[2017-07-30] VITALS: BP 121/67
[2017-07-30] MEDS: PIPERACILLIN/TAZO 3.375 GM/D5W 50 ML IV SCH ×4 (03:16→22:45)
[2017-07-30 04:00] VITALS: BP 126/70
[2017-07-30] MEDS: FentaNYL CITRATE PF 500 MCG in DEXTROSE 5%-WATER 90 ML IV PRN ×5 (04:03→21:23)
[2017-07-30 04:53] LABS: ANION GAP 8 mmol/L (8-16); CARBON DIOXIDE 32 mmol/L (22-29); CHLORIDE 100 mmol/L (98-107); CREATININE 0.67 mg/dL (0.60-1.30); GLOMERULAR FILTR. RATE CALC > 60 mL/min (>60); POTASSIUM 3.6 mmol/L (3.5-5.1); SODIUM SERUM 140 mmol/L (136-145); UREA NITROGEN, BLOOD 22 mg/dL (7-18)
[2017-07-30] MEDS: MethylPREDNISolone SOD SUCC 125 MG/2 ML VIAL IVP SCH ×3 (05:10→18:03)
[2017-07-30] MEDS: ALBUMIN HUMAN 25%-12.5GM/50ML 50 ML IV SCH ×3 (05:11→18:03)
[2017-07-30] MEDS: METOCLOPRAMIDE HCL 5 MG/ML 2 ML VIAL IVP SCH ×3 (05:11→18:03)
[2017-07-30] MEDS: INSULIN REGULAR, HUMAN 100 UNITS/ML SQ PRN ×3 (05:12→18:08)
[2017-07-30] MEDS: PROPOFOL 1000 MG/ISO-OSM 100 ML IV PRN ×4 (05:19→21:22)
[2017-07-30] MEDS: POTASSIUM CHL 10 MEQ/WATER 50 ML IV PRN ×3 (06:00→08:13)
[2017-07-30 08:00] VITALS: BP 138/80
[2017-07-30] MEDS: VANCOMYCIN HCL 1 GM/D5% WATER 200 ML IV SCH ×2 (08:31→20:30)
[2017-07-30] MEDS: ENOXAPARIN SODIUM 40 MG/0.4 ML PF SYRINGE SQ SCH (08:32)
[2017-07-30] MEDS: ASPIRIN 81 MG CHEWABLE TABLET PO SCH (08:32)
[2017-07-30] MEDS: ATORVASTATIN CALCIUM 20 MG TABLET PO SCH (08:32)
[2017-07-30] MEDS: PANTOPRAZOLE SODIUM 40 MG/VIAL IVP SCH (08:33)
[2017-07-30] MEDS: DOCUSATE SODIUM 100 MG CAPSULE PO SCH ×2 (08:33→20:30)
[2017-07-30] MEDS: BUDESONIDE 0.5 MG/2 ML NEB SOLUTION NEB SCH ×2 (09:56→21:54)
[2017-07-30] MEDS ORDERED: LORazepam 2 MG/ML VIAL IM PRN (10:30)
[2017-07-30 12:00] VITALS: BP_SYST 135; BP_SYST 137; BP_DIAS 85; BP_DIAS 91
[2017-07-30] MEDS: ACETAMINOPHEN 325 MG TABLET PO PRN (13:42)
[2017-07-30] MEDS: MORPHINE SULFATE 2 MG/ML SYRINGE IVP PRN ×4 (14:10→19:05)
[2017-07-30 16:00] VITALS: BP 157/99
[2017-07-30] MEDS: LORazepam 2 MG/ML VIAL IVP PRN ×2 (16:05→19:19)
[2017-07-30 20:00] VITALS: BP 114/69
[2017-07-31] VITALS (9 sets, daily range): BP systolic 127–156; BP diastolic 76–104
[2017-07-31 00:17] LABS: GLUCOSE COMMENT 1 Received Meds; GLUCOSE,POINT OF CARE 256 MG/DL (70-110)
[2017-07-31 00:17] LABS: GLUCOSE COMMENT 1 Received Meds; GLUCOSE,POINT OF CARE 200 MG/DL (70-110)
[2017-07-31 00:17] LABS: GLUCOSE,POINT OF CARE 217 MG/DL (70-110)
[2017-07-31 00:17] LABS: GLUCOSE COMMENT 1 Received Meds; GLUCOSE,POINT OF CARE 226 MG/DL (70-110)
[2017-07-31 00:17] LABS: GLUCOSE,POINT OF CARE 238 MG/DL (70-110)
[2017-07-31 00:17] LABS: GLUCOSE COMMENT 1 Received Meds; GLUCOSE,POINT OF CARE 204 MG/DL (70-110)
[2017-07-31 00:17] LABS: GLUCOSE,POINT OF CARE 237 MG/DL (70-110)
[2017-07-31] MEDS: ALBUMIN HUMAN 25%-12.5GM/50ML 50 ML IV SCH ×4 (00:58→17:50)
[2017-07-31] MEDS: MethylPREDNISolone SOD SUCC 125 MG/2 ML VIAL IVP SCH ×4 (00:59→17:50)
[2017-07-31] MEDS: METOCLOPRAMIDE HCL 5 MG/ML 2 ML VIAL IVP SCH ×4 (00:59→17:50)
[2017-07-31] MEDS: INSULIN REGULAR, HUMAN 100 UNITS/ML SQ PRN ×4 (01:08→17:51)
[2017-07-31 01:56] LABS: GLUCOSE COMMENT 1 Received Meds; GLUCOSE,POINT OF CARE 227 MG/DL (70-110)
[2017-07-31] MEDS ORDERED: SODIUM CHLORIDE 0.9% 250 ML IV ONE (02:29)
[2017-07-31] MEDS: PIPERACILLIN/TAZO 3.375 GM/D5W 50 ML IV SCH ×4 (03:48→21:19)
[2017-07-31] MEDS: PROPOFOL 1000 MG/ISO-OSM 100 ML IV PRN ×2 (04:26→14:43)
[2017-07-31 05:18] LABS: EOSINOPHILS % (AUTO) 0 % (1.0-6.0); HEMATOCRIT 26.3 % (36-46); HEMOGLOBIN 8.8 g/dL (12.0-16.0); LYMPHOCYTES # (AUTO) 0.2 K/uL (1.0-4.8); LYMPHOCYTES % (AUTO) 1.2 % (22.0-44.0); MEAN CORPUSCULAR HEMOGLOBIN 33.3 pg (26.0-34.0); MEAN CORPUSCULAR HGB CONC 33.6 G/dL (31.0-37.0); MEAN CORPUSCULAR VOLUME 99 fL (80-100); MONOCYTES % (AUTO) 0.1 % (2.0-9.0); NEUTROPHILS # (AUTO) 19.8 K/uL (1.8-7.7); PLATELET COUNT (AUTO) 108 K/uL (150-450); RED BLOOD CELL COUNT(AUTO) 2.65 MIL/uL (4.00-5.20); RED CELL DISTRIBUTION WIDTH 15.7 % (11.5-14.5); WHITE BLOOD COUNT (AUTO) 20.1 K/uL (4.5-11.0)
[2017-07-31 05:36] LABS: ANION GAP 8 mmol/L (8-16); CALCIUM, TOTAL 8.8 mg/dL (8.8-10.5); CARBON DIOXIDE 32 mmol/L (22-29); CHLORIDE 100 mmol/L (98-107); CREATININE 0.65 mg/dL (0.60-1.30); GLOMERULAR FILTR. RATE CALC > 60 mL/min (>60); POTASSIUM 3.6 mmol/L (3.5-5.1); SODIUM SERUM 140 mmol/L (136-145); UREA NITROGEN, BLOOD 24 mg/dL (7-18)
[2017-07-31] MEDS: POTASSIUM CHL 10 MEQ/WATER 50 ML IV PRN ×2 (05:43→06:29)
[2017-07-31] MEDS: LORazepam 2 MG/ML VIAL IVP PRN ×5 (05:43→21:20)
[2017-07-31 06:38] LABS: NEUTROPHILS % (AUTO) 98.7 % (40.0-70.0)
[2017-07-31 08:02] LABS: GLUCOSE COMMENT 1 Received Meds; GLUCOSE,POINT OF CARE 214 MG/DL (70-110)
[2017-07-31] MEDS: VANCOMYCIN HCL 1 GM/D5% WATER 200 ML IV SCH ×2 (08:22→19:39)
[2017-07-31] MEDS: ENOXAPARIN SODIUM 40 MG/0.4 ML PF SYRINGE SQ SCH (08:59)
[2017-07-31] MEDS: DOCUSATE SODIUM 100 MG CAPSULE PO SCH ×2 (08:59→20:06)
[2017-07-31] MEDS: ATORVASTATIN CALCIUM 20 MG TABLET PO SCH (08:59)
[2017-07-31] MEDS: ASPIRIN 81 MG CHEWABLE TABLET PO SCH (09:00)
[2017-07-31] MEDS: PANTOPRAZOLE SODIUM 40 MG/VIAL IVP SCH (09:01)
[2017-07-31] MEDS: BUDESONIDE 0.5 MG/2 ML NEB SOLUTION NEB SCH ×2 (09:57→21:38)
[2017-07-31 14:12] LABS: GLUCOSE,POINT OF CARE 202 MG/DL (70-110)
[2017-07-31 14:12] LABS: GLUCOSE,POINT OF CARE 170 MG/DL (70-110)
[2017-07-31 14:12] LABS: GLUCOSE COMMENT 1 Received Meds; GLUCOSE,POINT OF CARE 177 MG/DL (70-110)
[2017-07-31 14:13] LABS: GLUCOSE COMMENT 1 Received Meds; GLUCOSE,POINT OF CARE 237 MG/DL (70-110)
[2017-07-31 14:27] LABS: GLUCOSE,POINT OF CARE 198 MG/DL (70-110)
[2017-07-31 14:27] LABS: GLUCOSE,POINT OF CARE 200 MG/DL (70-110)
[2017-07-31 14:27] LABS: GLUCOSE,POINT OF CARE 217 MG/DL (70-110)
[2017-07-31 14:27] LABS: GLUCOSE COMMENT 1 Received Meds; GLUCOSE,POINT OF CARE 176 MG/DL (70-110)
[2017-07-31 14:27] LABS: GLUCOSE,POINT OF CARE 201 MG/DL (70-110)
[2017-07-31 14:27] LABS: GLUCOSE COMMENT 1 Received Meds; GLUCOSE,POINT OF CARE 216 MG/DL (70-110)
[2017-07-31] MEDS: ACETAMINOPHEN 325 MG TABLET PO PRN ×2 (14:43→20:06)
[2017-07-31] MEDS: MORPHINE SULFATE 2 MG/ML SYRINGE IVP PRN ×4 (15:26→21:20)
[2017-07-31 22:07] LABS: GLUCOSE COMMENT 1 Received Meds; GLUCOSE,POINT OF CARE 220 MG/DL (70-110)
[2017-08-01] VITALS (11 sets, daily range): BP systolic 105–146; BP diastolic 60–90
[2017-08-01] MEDS: METOCLOPRAMIDE HCL 5 MG/ML 2 ML VIAL IVP SCH ×4 (00:30→17:00)
[2017-08-01] MEDS: MethylPREDNISolone SOD SUCC 125 MG/2 ML VIAL IVP SCH ×4 (00:30→12:43)
[2017-08-01] MEDS: ALBUMIN HUMAN 25%-12.5GM/50ML 50 ML IV SCH ×4 (00:30→17:00)
[2017-08-01] MEDS: INSULIN REGULAR, HUMAN 100 UNITS/ML SQ PRN ×5 (00:43→23:21)
[2017-08-01 01:27] LABS: GLUCOSE COMMENT 1 Received Meds; GLUCOSE,POINT OF CARE 259 MG/DL (70-110)
[2017-08-01] MEDS: LORazepam 2 MG/ML VIAL IVP PRN ×5 (01:29→19:17)
[2017-08-01] MEDS: MORPHINE SULFATE 2 MG/ML SYRINGE IVP PRN ×5 (01:29→19:17)
[2017-08-01] MEDS: PROPOFOL 1000 MG/ISO-OSM 100 ML IV PRN ×3 (03:00→23:14)
[2017-08-01] MEDS: PIPERACILLIN/TAZO 3.375 GM/D5W 50 ML IV SCH ×4 (03:33→22:26)
[2017-08-01 05:19] LABS: ANION GAP 9 mmol/L (8-16); CALCIUM, TOTAL 8.8 mg/dL (8.8-10.5); CARBON DIOXIDE 31 mmol/L (22-29); CHLORIDE 100 mmol/L (98-107); CREATININE 0.67 mg/dL (0.60-1.30); GLOMERULAR FILTR. RATE CALC > 60 mL/min (>60); POTASSIUM 3.8 mmol/L (3.5-5.1); SODIUM SERUM 140 mmol/L (136-145); UREA NITROGEN, BLOOD 25 mg/dL (7-18)
[2017-08-01] MEDS: POTASSIUM CHL 10 MEQ/WATER 50 ML IV PRN ×2 (05:25→06:11)
[2017-08-01] MEDS ORDERED: SODIUM CHLORIDE 0.9% 250 ML IV ONE (05:47)
[2017-08-01 06:52] LABS: GLUCOSE COMMENT 1 Received Meds; GLUCOSE,POINT OF CARE 232 MG/DL (70-110)
[2017-08-01] MEDS: VANCOMYCIN HCL 1 GM/D5% WATER 200 ML IV SCH ×2 (08:57→19:59)
[2017-08-01] MEDS: ATORVASTATIN CALCIUM 20 MG TABLET PO SCH (08:58)
[2017-08-01] MEDS: ACETAMINOPHEN 325 MG TABLET PO PRN (08:58)
[2017-08-01] MEDS: ASPIRIN 81 MG CHEWABLE TABLET PO SCH (08:59)
[2017-08-01] MEDS: DOCUSATE SODIUM 100 MG CAPSULE PO SCH ×2 (08:59→19:59)
[2017-08-01] MEDS: PANTOPRAZOLE SODIUM 40 MG/VIAL IVP SCH (09:04)
[2017-08-01] MEDS: ENOXAPARIN SODIUM 40 MG/0.4 ML PF SYRINGE SQ SCH (09:05)
[2017-08-01] MEDS: BUDESONIDE 0.5 MG/2 ML NEB SOLUTION NEB SCH ×2 (10:03→21:36)
[2017-08-01 16:12] LABS: GLUCOSE COMMENT 1 Received Meds; GLUCOSE,POINT OF CARE 291 MG/DL (70-110)
[2017-08-01] MEDS ORDERED: DEXTROSE 50%-WATER 25 GM/50 ML SYRINGE IVP PRN (17:00)
[2017-08-01 19:32] LABS: GLUCOSE COMMENT 1 Received Meds; GLUCOSE,POINT OF CARE 242 MG/DL (70-110)
[2017-08-02] VITALS (11 sets, daily range): BP systolic 119–145; BP diastolic 55–94
[2017-08-02] MEDS: MethylPREDNISolone SOD SUCC 125 MG/2 ML VIAL IVP SCH ×4 (00:49→17:20)
[2017-08-02] MEDS: ALBUMIN HUMAN 25%-12.5GM/50ML 50 ML IV SCH ×4 (00:49→17:20)
[2017-08-02] MEDS: METOCLOPRAMIDE HCL 5 MG/ML 2 ML VIAL IVP SCH ×4 (00:50→17:21)
[2017-08-02 03:47] LABS: GLUCOSE COMMENT 1 Received Meds; GLUCOSE,POINT OF CARE 267 MG/DL (70-110)
[2017-08-02] MEDS: PIPERACILLIN/TAZO 3.375 GM/D5W 50 ML IV SCH ×4 (04:36→22:02)
[2017-08-02] MEDS: LORazepam 2 MG/ML VIAL IVP PRN (04:45)
[2017-08-02] MEDS: MORPHINE SULFATE 2 MG/ML SYRINGE IVP PRN ×3 (04:46→09:48)
[2017-08-02 05:14] LABS: ANION GAP 5 mmol/L (8-16); CALCIUM, TOTAL 9.2 mg/dL (8.8-10.5); CARBON DIOXIDE 33 mmol/L (22-29); CHLORIDE 101 mmol/L (98-107); CREATININE 0.66 mg/dL (0.60-1.30); GLOMERULAR FILTR. RATE CALC > 60 mL/min (>60); POTASSIUM 4.4 mmol/L (3.5-5.1); SODIUM SERUM 139 mmol/L (136-145); UREA NITROGEN, BLOOD 26 mg/dL (7-18)
[2017-08-02] MEDS: INSULIN REGULAR, HUMAN 100 UNITS/ML SQ PRN ×3 (05:33→17:30)
[2017-08-02] MEDS: PROPOFOL 1000 MG/ISO-OSM 100 ML IV PRN ×3 (06:41→17:21)
[2017-08-02 06:52] LABS: GLUCOSE COMMENT 1 Received Meds; GLUCOSE,POINT OF CARE 231 MG/DL (70-110)
[2017-08-02] MEDS: VANCOMYCIN HCL 1 GM/D5% WATER 200 ML IV SCH ×2 (07:13→19:59)
[2017-08-02] MEDS: ASPIRIN 81 MG CHEWABLE TABLET PO SCH (08:21)
[2017-08-02] MEDS: ENOXAPARIN SODIUM 40 MG/0.4 ML PF SYRINGE SQ SCH (08:22)
[2017-08-02] MEDS: DOCUSATE SODIUM 100 MG CAPSULE PO SCH ×2 (08:22→19:59)
[2017-08-02] MEDS: BUDESONIDE 0.5 MG/2 ML NEB SOLUTION NEB SCH ×2 (08:43→20:01)
[2017-08-02] MEDS: ATORVASTATIN CALCIUM 20 MG TABLET PO SCH (09:00)
[2017-08-02] MEDS: PANTOPRAZOLE SODIUM 40 MG/VIAL IVP SCH (09:47)
[2017-08-02 11:54] LABS: ABG A-A DIFF O2 238.7 mmHg (10-20.0); ABG BASE EXCESS 6.9 mmol/L (-2.0-3.0); ABG HCO3 30.1 mmol/L (22.0-26.0); ABG OXYHEMOGLOBIN 90.7 % (94.0-100.0); ABG PCO2 43 mmHg (35-45); ABG PH 7.471 (7.35-7.450); TEMPERATURE, FAHRENHEIT, BG 98.1 FAHREN (96.0-98.6)
[2017-08-02 11:57] LABS: ALLEN TEST, BLOOD GAS Positive; INSIPIRATORY PRESSURE, BG 22 cm H2O
[2017-08-02 13:47] LABS: GLUCOSE,POINT OF CARE 283 MG/DL (70-110)
[2017-08-02 14:16] LABS: INR 1.4 (0.9-1.1); PROTHROMBIN TIME 14.7 SEC (9.4-11.6)
[2017-08-02] MEDS ORDERED: SODIUM CHLORIDE 0.9% 250 ML IV ONE (19:57)
[2017-08-03] VITALS (11 sets, daily range): BP systolic 102–157; BP diastolic 64–100
[2017-08-03] MEDS: MethylPREDNISolone SOD SUCC 125 MG/2 ML VIAL IVP SCH ×3 (00:21→11:20)
[2017-08-03] MEDS: ALBUMIN HUMAN 25%-12.5GM/50ML 50 ML IV SCH ×4 (00:21→17:50)
[2017-08-03] MEDS: METOCLOPRAMIDE HCL 5 MG/ML 2 ML VIAL IVP SCH ×4 (00:21→17:50)
[2017-08-03] MEDS: INSULIN REGULAR, HUMAN 100 UNITS/ML SQ PRN ×4 (00:26→17:55)
[2017-08-03] MEDS: PROPOFOL 1000 MG/ISO-OSM 100 ML IV PRN ×3 (01:43→20:12)
[2017-08-03] MEDS: PIPERACILLIN/TAZO 3.375 GM/D5W 50 ML IV SCH ×4 (04:20→22:18)
[2017-08-03] MEDS: MORPHINE SULFATE 2 MG/ML SYRINGE IVP PRN ×4 (05:01→17:19)
[2017-08-03 05:25] LABS: EOSINOPHILS % (AUTO) 0 % (1.0-6.0); HEMATOCRIT 26.9 % (36-46); LYMPHOCYTES # (AUTO) 0.2 K/uL (1.0-4.8); MEAN CORPUSCULAR HEMOGLOBIN 33.4 pg (26.0-34.0); MEAN CORPUSCULAR HGB CONC 33.4 G/dL (31.0-37.0); MEAN CORPUSCULAR VOLUME 100 fL (80-100); MONOCYTES # (AUTO) 0.6 K/uL (0.1-1.0); NEUTROPHILS # (AUTO) 15.2 K/uL (1.8-7.7); PLATELET COUNT (AUTO) 115 K/uL (150-450); RED BLOOD CELL COUNT(AUTO) 2.69 MIL/uL (4.00-5.20); RED CELL DISTRIBUTION WIDTH 15.7 % (11.5-14.5); WHITE BLOOD COUNT (AUTO) 16.1 K/uL (4.5-11.0)
[2017-08-03 05:35] LABS: ANION GAP 7 mmol/L (8-16); CALCIUM, TOTAL 9.4 mg/dL (8.8-10.5); CARBON DIOXIDE 33 mmol/L (22-29); CHLORIDE 102 mmol/L (98-107); CREATININE 0.64 mg/dL (0.60-1.30); GLOMERULAR FILTR. RATE CALC > 60 mL/min (>60); POTASSIUM 3.7 mmol/L (3.5-5.1); SODIUM SERUM 142 mmol/L (136-145); UREA NITROGEN, BLOOD 24 mg/dL (7-18)
[2017-08-03] MEDS: BUDESONIDE 0.5 MG/2 ML NEB SOLUTION NEB SCH ×2 (07:16→21:24)
[2017-08-03] MEDS: ACETAMINOPHEN 325 MG TABLET PO PRN (08:01)
[2017-08-03] MEDS: DOCUSATE SODIUM 100 MG CAPSULE PO SCH ×2 (08:01→21:00)
[2017-08-03] MEDS: PANTOPRAZOLE SODIUM 40 MG/VIAL IVP SCH (08:01)
[2017-08-03] MEDS: VANCOMYCIN HCL 1 GM/D5% WATER 200 ML IV SCH ×2 (08:01→20:25)
[2017-08-03] MEDS: ATORVASTATIN CALCIUM 20 MG TABLET PO SCH (08:01)
[2017-08-03] MEDS ORDERED: SODIUM CHLORIDE 0.9% 1,000 ML IV ONE (08:16)
[2017-08-03] MEDS: LORazepam 2 MG/ML VIAL IVP PRN ×3 (08:17→17:19)
[2017-08-03] MEDS: ASPIRIN 81 MG CHEWABLE TABLET PO SCH (09:00)
[2017-08-03] MEDS: ENOXAPARIN SODIUM 40 MG/0.4 ML PF SYRINGE SQ SCH (09:00)
[2017-08-03] MEDS ORDERED: SUCCINYLCHOLINE CHLORIDE 20 MG/ML 10 ML VIAL IVP ONE (12:00)
[2017-08-03] MEDS ORDERED: ROCURONIUM BROMIDE 10 MG/ML 5 ML VIAL IVP ONE (12:00)
[2017-08-03] MEDS ORDERED: FentaNYL CITRATE-PF 100 MCG/2 ML VIAL IVP ONE ×2 (12:00)
[2017-08-03] MEDS ORDERED: LIDOCAINE HCL/PF 2% 5 ML VIAL INJ ONE (12:00)
[2017-08-03] MEDS ORDERED: MIDAZOLAM HCL 2 MG/2 ML VIAL IVP ONE (12:00)
[2017-08-03] MEDS ORDERED: EPHEDrine SULFATE 50 MG/ML VIAL IVP ONE (12:00)
[2017-08-03 12:12] LABS: GLUCOSE,POINT OF CARE 243 MG/DL (70-110)
[2017-08-03 12:12] LABS: GLUCOSE,POINT OF CARE 218 MG/DL (70-110)
[2017-08-03 12:12] LABS: GLUCOSE COMMENT 1 Received Meds; GLUCOSE,POINT OF CARE 234 MG/DL (70-110)
[2017-08-03] MEDS: POTASSIUM CHL 10 MEQ/WATER 50 ML IV PRN ×2 (13:03→14:10)
[2017-08-03] MEDS ORDERED: MIDAZOLAM HCL 5 MG/ML VIAL ONE (13:27)
[2017-08-03] MEDS ORDERED: FentaNYL CITRATE-PF 100 MCG/2 ML VIAL ONE (13:28)
[2017-08-03] MEDS ORDERED: SODIUM CHLORIDE 0.9% 500 ML IV ONE (13:44)
[2017-08-03] MEDS: POVIDONE-IODINE 10% 120 ML SOLUTION TP SCH (16:00)
[2017-08-03] MEDS: HYDROGEN PEROXIDE 473 ML SOLUTION TP SCH (16:00)
[2017-08-03] MEDS: MethylPREDNISolone SOD SUCC 40 MG/ML VIAL IVP SCH (17:50)
[2017-08-04] VITALS (9 sets, daily range): BP systolic 109–133; BP diastolic 64–92
[2017-08-04] MEDS: ALBUMIN HUMAN 25%-12.5GM/50ML 50 ML IV SCH ×4 (00:18→18:07)
[2017-08-04] MEDS: MethylPREDNISolone SOD SUCC 40 MG/ML VIAL IVP SCH ×4 (00:18→18:08)
[2017-08-04] MEDS: METOCLOPRAMIDE HCL 5 MG/ML 2 ML VIAL IVP SCH ×4 (00:19→18:08)
[2017-08-04] MEDS: PROPOFOL 1000 MG/ISO-OSM 100 ML IV PRN ×5 (00:21→21:50)
[2017-08-04] MEDS: INSULIN REGULAR, HUMAN 100 UNITS/ML SQ PRN ×4 (01:18→17:59)
[2017-08-04] MEDS: PIPERACILLIN/TAZO 3.375 GM/D5W 50 ML IV SCH ×4 (04:32→21:26)
[2017-08-04 04:43] LABS: EOSINOPHILS % (AUTO) 0 % (1.0-6.0); HEMATOCRIT 24.8 % (36-46); HEMOGLOBIN 8.2 g/dL (12.0-16.0); LYMPHOCYTES # (AUTO) 0.2 K/uL (1.0-4.8); LYMPHOCYTES % (AUTO) 1.2 % (22.0-44.0); MEAN CORPUSCULAR HEMOGLOBIN 33.2 pg (26.0-34.0); MEAN CORPUSCULAR HGB CONC 32.9 G/dL (31.0-37.0); MEAN CORPUSCULAR VOLUME 101 fL (80-100); MONOCYTES # (AUTO) 0.5 K/uL (0.1-1.0); MONOCYTES % (AUTO) 3.1 % (2.0-9.0); NEUTROPHILS # (AUTO) 14.4 K/uL (1.8-7.7); PLATELET COUNT (AUTO) 90 K/uL (150-450); RED BLOOD CELL COUNT(AUTO) 2.46 MIL/uL (4.00-5.20); RED CELL DISTRIBUTION WIDTH 16.4 % (11.5-14.5); WHITE BLOOD COUNT (AUTO) 15.1 K/uL (4.5-11.0)
[2017-08-04 04:44] LABS: ANION GAP 9 mmol/L (8-16); CALCIUM, TOTAL 9.3 mg/dL (8.8-10.5); CARBON DIOXIDE 31 mmol/L (22-29); CHLORIDE 101 mmol/L (98-107); CREATININE 0.62 mg/dL (0.60-1.30); GLOMERULAR FILTR. RATE CALC > 60 mL/min (>60); PHOSPHORUS 3.5 mg/dL (2.5-4.9); SODIUM SERUM 141 mmol/L (136-145); UREA NITROGEN, BLOOD 27 mg/dL (7-18)
[2017-08-04 04:45] LABS: NEUTROPHILS % (AUTO) 95.7 % (40.0-70.0)
[2017-08-04 07:15] LABS: RBC MORPHOLOGY COMMENT ABNORMAL RBC MORPH
[2017-08-04 07:37] LABS: GLUCOSE COMMENT 1 Received Meds; GLUCOSE,POINT OF CARE 263 MG/DL (70-110)
[2017-08-04 07:37] LABS: GLUCOSE COMMENT 1 Received Meds; GLUCOSE,POINT OF CARE 211 MG/DL (70-110)
[2017-08-04 07:37] LABS: GLUCOSE COMMENT 1 Received Meds; GLUCOSE,POINT OF CARE 266 MG/DL (70-110)
[2017-08-04 07:44] LABS: GLUCOSE COMMENT 1 Received Meds; GLUCOSE,POINT OF CARE 230 MG/DL (70-110)
[2017-08-04] MEDS: BUDESONIDE 0.5 MG/2 ML NEB SOLUTION NEB SCH ×2 (08:09→21:13)
[2017-08-04] MEDS: VANCOMYCIN HCL 1 GM/D5% WATER 200 ML IV SCH ×2 (08:12→21:19)
[2017-08-04] MEDS: PANTOPRAZOLE SODIUM 40 MG/VIAL IVP SCH (08:12)
[2017-08-04] MEDS: DOCUSATE SODIUM 100 MG CAPSULE PO SCH ×2 (08:13→21:19)
[2017-08-04] MEDS: ASPIRIN 81 MG CHEWABLE TABLET PO SCH (08:13)
[2017-08-04] MEDS: ATORVASTATIN CALCIUM 20 MG TABLET PO SCH (08:14)
[2017-08-04] MEDS: ENOXAPARIN SODIUM 40 MG/0.4 ML PF SYRINGE SQ SCH (08:14)
[2017-08-04] MEDS ORDERED: FUROSEMIDE 40 MG/4 ML VIAL IVP ONE (10:00)
[2017-08-04] MEDS: LOSARTAN POTASSIUM 25 MG TABLET PO SCH (10:13)
[2017-08-04] MEDS: METOPROLOL TARTRATE 25 MG TABLET PO SCH ×2 (10:14→21:19)
[2017-08-04] MEDS: POVIDONE-IODINE 10% 120 ML SOLUTION TP SCH (10:29)
[2017-08-04] MEDS: HYDROGEN PEROXIDE 473 ML SOLUTION TP SCH (10:29)
[2017-08-04 11:48] LABS: ABG A-A DIFF O2 231.4 mmHg (10-20.0); ABG BASE EXCESS 7.9 mmol/L (-2.0-3.0); ABG OXYHEMOGLOBIN 93.4 % (94.0-100.0); ABG PCO2 43 mmHg (35-45); ABG PH 7.481 (7.35-7.450); ALLEN TEST, BLOOD GAS Positive; INSIPIRATORY PRESSURE, BG 22 cm H2O; TEMPERATURE, FAHRENHEIT, BG 98.9 FAHREN (96.0-98.6)
[2017-08-04 15:27] LABS: GLUCOSE COMMENT 1 Received Meds; GLUCOSE,POINT OF CARE 270 MG/DL (70-110)
[2017-08-04] MEDS: ACETAMINOPHEN 325 MG TABLET PO PRN (16:53)
[2017-08-04 18:02] LABS: GLUCOSE,POINT OF CARE 286 MG/DL (70-110)
[2017-08-04] MEDS ORDERED: ONDANSETRON HCL 4 MG/2 ML VIAL IM PRN (19:15)
[2017-08-04] MEDS ORDERED: DIGOXIN 250 MCG/ML 2 ML AMP IVP ONE ×2 (19:30→19:45)
[2017-08-04] MEDS ORDERED: AMIODARONE HCL 360 MG in DEXTROSE 5%-WATER 242.8 ML IV ONE ×2 (19:45→20:00)
[2017-08-04] MEDS ORDERED: AMIODARONE HCL 50 MG in DEXTROSE 5%-WATER 97 ML IV ONE ×2 (19:45→20:00)
[2017-08-04] MEDS ORDERED: HEPARIN SODIUM 25000 UNITS/D5W 250 ML IV PRN (19:51)
[2017-08-04] MEDS ORDERED: HEPARIN SODIUM,PORCINE 5,000 UNITS/ML VIAL IVP ONE (20:00)
[2017-08-04] MEDS ORDERED: HEPARIN SODIUM,PORCINE 5,000 UNITS/ML VIAL IVP PRN ×2 (20:00)
[2017-08-04 20:14] LABS: EOSINOPHILS % (AUTO) 0 % (1.0-6.0); HEMATOCRIT 25.3 % (36-46); HEMOGLOBIN 8.4 g/dL (12.0-16.0); LYMPHOCYTES # (AUTO) 0.2 K/uL (1.0-4.8); MEAN CORPUSCULAR HEMOGLOBIN 33.5 pg (26.0-34.0); MEAN CORPUSCULAR HGB CONC 33.3 G/dL (31.0-37.0); MEAN CORPUSCULAR VOLUME 101 fL (80-100); MONOCYTES # (AUTO) 0.2 K/uL (0.1-1.0); NEUTROPHILS # (AUTO) 16.5 K/uL (1.8-7.7); PLATELET COUNT (AUTO) 94 K/uL (150-450); RED BLOOD CELL COUNT(AUTO) 2.51 MIL/uL (4.00-5.20); RED CELL DISTRIBUTION WIDTH 16.4 % (11.5-14.5); WHITE BLOOD COUNT (AUTO) 16.9 K/uL (4.5-11.0)
[2017-08-04 20:29] LABS: ANION GAP 8 mmol/L (8-16); CALCIUM, TOTAL 9.1 mg/dL (8.8-10.5); CARBON DIOXIDE 32 mmol/L (22-29); CHLORIDE 100 mmol/L (98-107); CREATININE 0.83 mg/dL (0.60-1.30); GLOMERULAR FILTR. RATE CALC > 60 mL/min (>60); POTASSIUM 3.1 mmol/L (3.5-5.1); SODIUM SERUM 140 mmol/L (136-145); UREA NITROGEN, BLOOD 29 mg/dL (7-18)
[2017-08-04 20:30] LABS: INR 1.3 (0.9-1.1); PROTHROMBIN TIME 14.2 SEC (9.4-11.6)
[2017-08-04 20:59] LABS: RBC MORPHOLOGY COMMENT ABNORMAL RBC MORPH
[2017-08-04] MEDS ORDERED: SODIUM CHLORIDE 0.9% 250 ML IV ONE (21:24)
[2017-08-05] VITALS: BP 129/75
[2017-08-05] MEDS: MethylPREDNISolone SOD SUCC 40 MG/ML VIAL IVP SCH ×5 (00:52→23:54)
[2017-08-05] MEDS: ALBUMIN HUMAN 25%-12.5GM/50ML 50 ML IV SCH ×5 (00:52→23:54)
[2017-08-05] MEDS: INSULIN REGULAR, HUMAN 100 UNITS/ML SQ PRN ×5 (00:53→23:57)
[2017-08-05] MEDS: METOCLOPRAMIDE HCL 5 MG/ML 2 ML VIAL IVP SCH ×5 (00:53→23:54)
[2017-08-05] MEDS ORDERED: AMIODARONE HCL 540 MG in DEXTROSE 5%-WATER 239.2 ML IV ONE ×2 (01:45→02:00)
[2017-08-05] MEDS: MORPHINE SULFATE 2 MG/ML SYRINGE IVP PRN (02:35)
[2017-08-05] MEDS: PIPERACILLIN/TAZO 3.375 GM/D5W 50 ML IV SCH ×4 (03:28→21:25)
[2017-08-05] MEDS: PROPOFOL 1000 MG/ISO-OSM 100 ML IV PRN ×5 (03:29→23:57)
[2017-08-05 04:00] VITALS: BP 140/59
[2017-08-05 05:41] LABS: ALANINE AMINOTRANSFERASE 63 U/L (12-78); ALBUMIN 4.1 g/dL (3.4-5.0); ANION GAP 9 mmol/L (8-16); ASPARTATE AMINOTRANSFERASE 20 U/L (15-37); BILIRUBIN,TOTAL 1.4 mg/dL (0.1-1.0); CARBON DIOXIDE 33 mmol/L (22-29); CHLORIDE 99 mmol/L (98-107); CREATININE 0.75 mg/dL (0.60-1.30); GLOMERULAR FILTR. RATE CALC > 60 mL/min (>60); POTASSIUM 3.2 mmol/L (3.5-5.1); SODIUM SERUM 141 mmol/L (136-145); TOTAL PROTEIN, SERUM 5.8 g/dL (6.4-8.2); UREA NITROGEN, BLOOD 27 mg/dL (7-18)
[2017-08-05] MEDS: POTASSIUM CHL 10 MEQ/WATER 50 ML IV PRN ×8 (05:53→22:53)
[2017-08-05 06:12] LABS: EOSINOPHILS % (AUTO) 0 % (1.0-6.0); HEMATOCRIT 24.6 % (36-46); LYMPHOCYTES # (AUTO) 0.1 K/uL (1.0-4.8); LYMPHOCYTES % (AUTO) 0.8 % (22.0-44.0); MEAN CORPUSCULAR HEMOGLOBIN 33.2 pg (26.0-34.0); MEAN CORPUSCULAR HGB CONC 32.6 G/dL (31.0-37.0); MEAN CORPUSCULAR VOLUME 102 fL (80-100); MONOCYTES # (AUTO) 0.5 K/uL (0.1-1.0); MONOCYTES % (AUTO) 3.5 % (2.0-9.0); NEUTROPHILS # (AUTO) 14.6 K/uL (1.8-7.7); PLATELET COUNT (AUTO) 88 K/uL (150-450); RED BLOOD CELL COUNT(AUTO) 2.42 MIL/uL (4.00-5.20); RED CELL DISTRIBUTION WIDTH 17.1 % (11.5-14.5); WHITE BLOOD COUNT (AUTO) 15.3 K/uL (4.5-11.0)
[2017-08-05 06:42] LABS: NEUTROPHILS % (AUTO) 95.7 % (40.0-70.0)
[2017-08-05] MEDS: BUDESONIDE 0.5 MG/2 ML NEB SOLUTION NEB SCH ×2 (07:55→21:00)
[2017-08-05 08:00] VITALS: BP 137/85
[2017-08-05] MEDS: VANCOMYCIN HCL 1 GM/D5% WATER 200 ML IV SCH ×2 (08:22→19:34)
[2017-08-05] MEDS: ASPIRIN 81 MG CHEWABLE TABLET PO SCH (08:48)
[2017-08-05] MEDS: PANTOPRAZOLE SODIUM 40 MG/VIAL IVP SCH (08:48)
[2017-08-05] MEDS: LOSARTAN POTASSIUM 25 MG TABLET PO SCH (08:49)
[2017-08-05] MEDS: DOCUSATE SODIUM 100 MG CAPSULE PO SCH ×2 (08:49→21:25)
[2017-08-05] MEDS: ATORVASTATIN CALCIUM 20 MG TABLET PO SCH (08:49)
[2017-08-05] MEDS: METOPROLOL TARTRATE 25 MG TABLET PO SCH ×3 (08:50→21:25)
[2017-08-05] MEDS: HYDROGEN PEROXIDE 473 ML SOLUTION TP SCH (08:51)
[2017-08-05] MEDS ORDERED: POVIDONE-IODINE 10% 15 ML SOLUTION UD ONE (09:27)
[2017-08-05] MEDS: AMIODARONE HCL 200 MG TABLET PO SCH ×3 (09:30→23:57)
[2017-08-05] MEDS: POVIDONE-IODINE 10% 120 ML SOLUTION TP SCH (09:30)
[2017-08-05 09:42] LABS: GLUCOSE COMMENT 1 Received Meds; GLUCOSE,POINT OF CARE 322 MG/DL (70-110)
[2017-08-05 09:42] LABS: GLUCOSE COMMENT 1 Received Meds; GLUCOSE,POINT OF CARE 249 MG/DL (70-110)
[2017-08-05] MEDS ORDERED: METOPROLOL TARTRATE 25 MG TABLET PO ONE (10:00)
[2017-08-05 10:09] LABS: RBC MORPHOLOGY COMMENT ABNORMAL RBC MORPH
[2017-08-05 12:00] VITALS: BP 134/75
[2017-08-05 16:00] VITALS: BP 143/81
[2017-08-05 17:13] LABS: GLUCOSE COMMENT 1 Received Meds; GLUCOSE,POINT OF CARE 215 MG/DL (70-110)
[2017-08-05] MEDS ORDERED: AMIODARONE HCL 750 MG in DEXTROSE 5%-WATER 485 ML IV SCH ×2 (19:51→20:00)
[2017-08-05 20:00] VITALS: BP 141/79
[2017-08-06] VITALS (11 sets, daily range): BP systolic 119–164; BP diastolic 62–114
[2017-08-06 00:17] LABS: GLUCOSE,POINT OF CARE 167 MG/DL (70-110)
[2017-08-06 00:18] LABS: GLUCOSE COMMENT 1 Received Meds; GLUCOSE,POINT OF CARE 198 MG/DL (70-110)
[2017-08-06] MEDS: PIPERACILLIN/TAZO 3.375 GM/D5W 50 ML IV SCH ×4 (04:49→21:58)
[2017-08-06] MEDS ORDERED: SODIUM CHLORIDE 0.9% 250 ML IV ONE (04:51)
[2017-08-06 05:01] LABS: EOSINOPHILS % (AUTO) 0.01 % (1.0-6.0); HEMATOCRIT 25.5 % (36-46); HEMOGLOBIN 8.4 g/dL (12.0-16.0); LYMPHOCYTES # (AUTO) 0.2 K/uL (1.0-4.8); LYMPHOCYTES % (AUTO) 1.2 % (22.0-44.0); MEAN CORPUSCULAR HEMOGLOBIN 32.9 pg (26.0-34.0); MEAN CORPUSCULAR HGB CONC 32.8 G/dL (31.0-37.0); MEAN CORPUSCULAR VOLUME 100 fL (80-100); MONOCYTES # (AUTO) 0.4 K/uL (0.1-1.0); MONOCYTES % (AUTO) 2.2 % (2.0-9.0); PLATELET COUNT (AUTO) 82 K/uL (150-450); RED BLOOD CELL COUNT(AUTO) 2.54 MIL/uL (4.00-5.20); RED CELL DISTRIBUTION WIDTH 17.7 % (11.5-14.5); WHITE BLOOD COUNT (AUTO) 15.5 K/uL (4.5-11.0)
[2017-08-06 05:03] LABS: NEUTROPHILS % (AUTO) 96.6 % (40.0-70.0)
[2017-08-06 05:09] LABS: ALANINE AMINOTRANSFERASE 58 U/L (12-78); ALBUMIN 4.3 g/dL (3.4-5.0); ANION GAP 9 mmol/L (8-16); ASPARTATE AMINOTRANSFERASE 19 U/L (15-37); BILIRUBIN,TOTAL 1.5 mg/dL (0.1-1.0); CALCIUM, TOTAL 9.5 mg/dL (8.8-10.5); CARBON DIOXIDE 32 mmol/L (22-29); CHLORIDE 101 mmol/L (98-107); CREATININE 0.59 mg/dL (0.60-1.30); GLOMERULAR FILTR. RATE CALC > 60 mL/min (>60); POTASSIUM 4.1 mmol/L (3.5-5.1); SODIUM SERUM 142 mmol/L (136-145); TOTAL PROTEIN, SERUM 6.1 g/dL (6.4-8.2); UREA NITROGEN, BLOOD 25 mg/dL (7-18)
[2017-08-06] MEDS: ALBUMIN HUMAN 25%-12.5GM/50ML 50 ML IV SCH ×4 (05:40→23:45)
[2017-08-06] MEDS: METOCLOPRAMIDE HCL 5 MG/ML 2 ML VIAL IVP SCH ×4 (05:40→23:45)
[2017-08-06] MEDS: MethylPREDNISolone SOD SUCC 40 MG/ML VIAL IVP SCH ×2 (05:40→12:12)
[2017-08-06] MEDS: MORPHINE SULFATE 2 MG/ML SYRINGE IVP PRN ×2 (05:41→16:10)
[2017-08-06] MEDS: LORazepam 2 MG/ML VIAL IVP PRN ×2 (05:41→17:29)
[2017-08-06] MEDS: PROPOFOL 1000 MG/ISO-OSM 100 ML IV PRN ×4 (05:42→23:46)
[2017-08-06] MEDS: INSULIN REGULAR, HUMAN 100 UNITS/ML SQ PRN ×4 (05:42→23:47)
[2017-08-06] MEDS: VANCOMYCIN HCL 1 GM/D5% WATER 200 ML IV SCH ×2 (08:14→19:40)
[2017-08-06] MEDS: BUDESONIDE 0.5 MG/2 ML NEB SOLUTION NEB SCH ×2 (08:17→19:23)
[2017-08-06] MEDS: DOCUSATE SODIUM 100 MG CAPSULE PO SCH ×2 (08:24→21:00)
[2017-08-06] MEDS: PANTOPRAZOLE SODIUM 40 MG/VIAL IVP SCH (08:24)
[2017-08-06] MEDS: AMIODARONE HCL 200 MG TABLET PO SCH ×3 (08:24→23:46)
[2017-08-06] MEDS: ASPIRIN 81 MG CHEWABLE TABLET PO SCH (08:24)
[2017-08-06] MEDS: LOSARTAN POTASSIUM 25 MG TABLET PO SCH (08:25)
[2017-08-06] MEDS: ATORVASTATIN CALCIUM 20 MG TABLET PO SCH (08:25)
[2017-08-06] MEDS: METOPROLOL TARTRATE 25 MG TABLET PO SCH ×2 (08:25→21:01)
[2017-08-06] MEDS: HYDROGEN PEROXIDE 473 ML SOLUTION TP SCH (08:26)
[2017-08-06] MEDS: POVIDONE-IODINE 10% 120 ML SOLUTION TP SCH (08:26)
[2017-08-06 08:38] LABS: RBC MORPHOLOGY COMMENT ABNORMAL RBC MORPH
[2017-08-06] MEDS: PredniSONE 20 MG TABLET PO SCH (14:15)
[2017-08-07] VITALS (12 sets, daily range): BP systolic 97–152; BP diastolic 60–102
[2017-08-07] MEDS: PROPOFOL 1000 MG/ISO-OSM 100 ML IV PRN ×4 (03:45→18:35)
[2017-08-07] MEDS: PIPERACILLIN/TAZO 3.375 GM/D5W 50 ML IV SCH ×4 (03:46→21:52)
[2017-08-07] MEDS: METOCLOPRAMIDE HCL 5 MG/ML 2 ML VIAL IVP SCH ×4 (05:20→23:41)
[2017-08-07] MEDS: ALBUMIN HUMAN 25%-12.5GM/50ML 50 ML IV SCH ×4 (05:20→23:41)
[2017-08-07] MEDS: INSULIN REGULAR, HUMAN 100 UNITS/ML SQ PRN ×4 (05:22→23:42)
[2017-08-07 06:22] LABS: HEMATOCRIT 24.1 % (36-46); MEAN CORPUSCULAR HEMOGLOBIN 33.9 pg (26.0-34.0); MEAN CORPUSCULAR HGB CONC 33.1 G/dL (31.0-37.0); MEAN CORPUSCULAR VOLUME 103 fL (80-100); PLATELET COUNT (AUTO) 69 K/uL (150-450); RED BLOOD CELL COUNT(AUTO) 2.35 MIL/uL (4.00-5.20); RED CELL DISTRIBUTION WIDTH 17.9 % (11.5-14.5); WHITE BLOOD COUNT (AUTO) 10.9 K/uL (4.5-11.0)
[2017-08-07 06:29] LABS: ANION GAP 7 mmol/L (8-16); CALCIUM, TOTAL 9.3 mg/dL (8.8-10.5); CARBON DIOXIDE 31 mmol/L (22-29); CHLORIDE 101 mmol/L (98-107); CREATININE 0.77 mg/dL (0.60-1.30); GLOMERULAR FILTR. RATE CALC > 60 mL/min (>60); PHOSPHORUS 3.3 mg/dL (2.5-4.9); POTASSIUM 3.7 mmol/L (3.5-5.1); SODIUM SERUM 139 mmol/L (136-145); UREA NITROGEN, BLOOD 28 mg/dL (7-18)
[2017-08-07 06:52] LABS: GLUCOSE,POINT OF CARE 312 MG/DL (70-110)
[2017-08-07 06:53] LABS: GLUCOSE COMMENT 1 Received Meds; GLUCOSE,POINT OF CARE 242 MG/DL (70-110)
[2017-08-07] MEDS: PANTOPRAZOLE SODIUM 40 MG/VIAL IVP SCH (08:30)
[2017-08-07] MEDS: ATORVASTATIN CALCIUM 20 MG TABLET PO SCH (08:30)
[2017-08-07] MEDS: AMIODARONE HCL 200 MG TABLET PO SCH ×3 (08:30→23:40)
[2017-08-07] MEDS: PredniSONE 20 MG TABLET PO SCH (08:30)
[2017-08-07] MEDS: VANCOMYCIN HCL 1 GM/D5% WATER 200 ML IV SCH ×2 (08:30→19:06)
[2017-08-07] MEDS: ASPIRIN 81 MG CHEWABLE TABLET PO SCH (08:31)
[2017-08-07] MEDS: LOSARTAN POTASSIUM 25 MG TABLET PO SCH (08:31)
[2017-08-07] MEDS: DOCUSATE SODIUM 100 MG CAPSULE PO SCH ×2 (08:31→20:46)
[2017-08-07] MEDS: METOPROLOL TARTRATE 25 MG TABLET PO SCH ×2 (08:31→20:46)
[2017-08-07 09:42] LABS: BAND NEUTROPHILS % (MANUAL) 15 % (1-5); LYMPHOCYTES % (MANUAL) 8 % (22-44); TOTAL CELLS COUNTED 100
[2017-08-07 09:48] LABS: RBC MORPHOLOGY COMMENT ABNORMAL R
[2017-08-07] MEDS: POVIDONE-IODINE 10% 120 ML SOLUTION TP SCH (09:58)
[2017-08-07] MEDS: HYDROGEN PEROXIDE 473 ML SOLUTION TP SCH (09:59)
[2017-08-07] MEDS: BUDESONIDE 0.5 MG/2 ML NEB SOLUTION NEB SCH ×2 (10:32→19:06)
[2017-08-07] MEDS: OXYGEN THERAPY IH SCH ×2 (10:32→20:46)
[2017-08-07] MEDS: POTASSIUM CHL 10 MEQ/WATER 50 ML IV PRN ×3 (11:59→13:34)
[2017-08-07] MEDS: LORazepam 2 MG/ML VIAL IVP PRN (15:33)
[2017-08-07 20:07] LABS: GLUCOSE COMMENT 1 Received Meds; GLUCOSE,POINT OF CARE 260 MG/DL (70-110)
[2017-08-07 20:07] LABS: GLUCOSE,POINT OF CARE 189 MG/DL (70-110)
[2017-08-07 20:07] LABS: GLUCOSE COMMENT 1 Received Meds; GLUCOSE,POINT OF CARE 223 MG/DL (70-110)
[2017-08-07 20:13] LABS: GLUCOSE,POINT OF CARE 197 MG/DL (70-110)
[2017-08-07 20:13] LABS: GLUCOSE COMMENT 1 Received Meds; GLUCOSE,POINT OF CARE 226 MG/DL (70-110)
[2017-08-08] VITALS (11 sets, daily range): BP systolic 97–153; BP diastolic 60–88
[2017-08-08] MEDS: PROPOFOL 1000 MG/ISO-OSM 100 ML IV PRN ×5 (02:23→21:33)
[2017-08-08] MEDS: PIPERACILLIN/TAZO 3.375 GM/D5W 50 ML IV SCH ×4 (04:16→21:43)
[2017-08-08] MEDS ORDERED: SODIUM CHLORIDE 0.9% 250 ML IV ONE ×2 (04:55→23:50)
[2017-08-08 05:11] LABS: ANION GAP 6 mmol/L (8-16); CALCIUM, TOTAL 9.4 mg/dL (8.8-10.5); CARBON DIOXIDE 33 mmol/L (22-29); CHLORIDE 101 mmol/L (98-107); CREATININE 0.65 mg/dL (0.60-1.30); GLOMERULAR FILTR. RATE CALC > 60 mL/min (>60); POTASSIUM 3.8 mmol/L (3.5-5.1); SODIUM SERUM 140 mmol/L (136-145); UREA NITROGEN, BLOOD 28 mg/dL (7-18)
[2017-08-08] MEDS: ALBUMIN HUMAN 25%-12.5GM/50ML 50 ML IV SCH ×3 (05:16→18:11)
[2017-08-08] MEDS: METOCLOPRAMIDE HCL 5 MG/ML 2 ML VIAL IVP SCH ×3 (05:16→18:00)
[2017-08-08] MEDS: INSULIN REGULAR, HUMAN 100 UNITS/ML SQ PRN ×2 (05:17→18:13)
[2017-08-08] MEDS: PANTOPRAZOLE SODIUM 40 MG/VIAL IVP SCH (08:03)
[2017-08-08] MEDS: ASPIRIN 81 MG CHEWABLE TABLET PO SCH (08:04)
[2017-08-08] MEDS: ATORVASTATIN CALCIUM 20 MG TABLET PO SCH (08:04)
[2017-08-08] MEDS: PredniSONE 20 MG TABLET PO SCH (08:05)
[2017-08-08] MEDS: DOCUSATE SODIUM 100 MG CAPSULE PO SCH ×2 (08:06→20:21)
[2017-08-08] MEDS: VANCOMYCIN HCL 1 GM/D5% WATER 200 ML IV SCH ×2 (08:06→20:21)
[2017-08-08] MEDS: OXYGEN THERAPY IH SCH ×2 (08:07→20:21)
[2017-08-08] MEDS: AMIODARONE HCL 200 MG TABLET PO SCH ×2 (08:07→16:00)
[2017-08-08] MEDS: LOSARTAN POTASSIUM 25 MG TABLET PO SCH (08:08)
[2017-08-08] MEDS: POVIDONE-IODINE 10% 120 ML SOLUTION TP SCH (08:09)
[2017-08-08] MEDS: HYDROGEN PEROXIDE 473 ML SOLUTION TP SCH (08:09)
[2017-08-08] MEDS: METOPROLOL TARTRATE 25 MG TABLET PO SCH ×2 (08:09→21:32)
[2017-08-08 09:39] LABS: ABG A-A DIFF O2 430.6 mmHg (10-20.0); ABG BASE EXCESS 7.5 mmol/L (-2.0-3.0); ABG HCO3 30.2 mmol/L (22.0-26.0); ABG PCO2 58 mmHg (35-45); ABG PH 7.372 (7.35-7.450); TEMPERATURE, FAHRENHEIT, BG 98.7 FAHREN (96.0-98.6)
[2017-08-08 09:40] LABS: ALLEN TEST, BLOOD GAS Positive; INSIPIRATORY PRESSURE, BG 22 cm H2O
[2017-08-08] MEDS: BUDESONIDE 0.5 MG/2 ML NEB SOLUTION NEB SCH ×2 (10:01→18:53)
[2017-08-08 12:42] LABS: GLUCOSE COMMENT 1 Received Meds; GLUCOSE,POINT OF CARE 188 MG/DL (70-110)
[2017-08-08] MEDS ORDERED: SODIUM CHLORIDE 0.9% 500 ML IV ONE (13:09)
[2017-08-08 14:59] LABS: ABG A-A DIFF O2 590.1 mmHg (10-20.0); ABG HCO3 22.5 mmol/L (22.0-26.0); ABG OXYHEMOGLOBIN 89.8 % (94.0-100.0); ABG PCO2 52 mmHg (35-45); ABG PH 7.293 (7.35-7.450); TEMPERATURE, FAHRENHEIT, BG 98.5 FAHREN (96.0-98.6)
[2017-08-08 15:00] LABS: INSIPIRATORY PRESSURE, BG 26 cm H2O
[2017-08-08 19:52] LABS: GLUCOSE COMMENT 1 Received Meds; GLUCOSE,POINT OF CARE 190 MG/DL (70-110)
[2017-08-08 19:52] LABS: GLUCOSE,POINT OF CARE 165 MG/DL (70-110)
[2017-08-08] MEDS: MORPHINE SULFATE 2 MG/ML SYRINGE IVP PRN (21:32)
[2017-08-08] MEDS: ACETAMINOPHEN 325 MG TABLET PO PRN (21:33)
[2017-08-08] MEDS: LORazepam 2 MG/ML VIAL IVP PRN (21:34)
[2017-08-09] VITALS (10 sets, daily range): BP systolic 84–115; BP diastolic 45–72
[2017-08-09] MEDS: METOCLOPRAMIDE HCL 5 MG/ML 2 ML VIAL IVP SCH ×4 (00:16→18:12)
[2017-08-09] MEDS: AMIODARONE HCL 200 MG TABLET PO SCH ×3 (00:16→18:12)
[2017-08-09] MEDS: ALBUMIN HUMAN 25%-12.5GM/50ML 50 ML IV SCH ×4 (00:16→18:12)
[2017-08-09] MEDS: PROPOFOL 1000 MG/ISO-OSM 100 ML IV PRN ×4 (02:13→15:32)
[2017-08-09 02:57] LABS: GLUCOSE,POINT OF CARE 130 MG/DL (70-110)
[2017-08-09 02:57] LABS: GLUCOSE,POINT OF CARE 151 MG/DL (70-110)
[2017-08-09] MEDS: MORPHINE SULFATE 2 MG/ML SYRINGE IVP PRN ×2 (04:04→06:44)
[2017-08-09 05:10] LABS: ANION GAP 6 mmol/L (8-16); CALCIUM, TOTAL 8.9 mg/dL (8.8-10.5); CARBON DIOXIDE 33 mmol/L (22-29); CHLORIDE 102 mmol/L (98-107); CREATININE 0.73 mg/dL (0.60-1.30); GLOMERULAR FILTR. RATE CALC > 60 mL/min (>60); POTASSIUM 3.4 mmol/L (3.5-5.1); SODIUM SERUM 141 mmol/L (136-145); UREA NITROGEN, BLOOD 29 mg/dL (7-18)
[2017-08-09 08:12] LABS: GLUCOSE,POINT OF CARE 129 MG/DL (70-110)
[2017-08-09] MEDS ORDERED: PHENYLEPHRINE 200 MG/D5%-WATER 250 ML IV PRN (08:21)
[2017-08-09] MEDS: BUDESONIDE 0.5 MG/2 ML NEB SOLUTION NEB SCH ×2 (08:43→21:00)
[2017-08-09] MEDS: METOPROLOL TARTRATE 25 MG TABLET PO SCH ×2 (09:00→20:19)
[2017-08-09] MEDS: LOSARTAN POTASSIUM 25 MG TABLET PO SCH (09:00)
[2017-08-09] MEDS: POVIDONE-IODINE 10% 120 ML SOLUTION TP SCH (09:00)
[2017-08-09] MEDS: HYDROGEN PEROXIDE 473 ML SOLUTION TP SCH (09:00)
[2017-08-09] MEDS: PANTOPRAZOLE SODIUM 40 MG/VIAL IVP SCH (09:34)
[2017-08-09] MEDS: PredniSONE 20 MG TABLET PO SCH (09:34)
[2017-08-09] MEDS: DOCUSATE SODIUM 100 MG CAPSULE PO SCH ×2 (09:35→20:43)
[2017-08-09] MEDS: ATORVASTATIN CALCIUM 20 MG TABLET PO SCH (09:37)
[2017-08-09] MEDS: ASPIRIN 81 MG CHEWABLE TABLET PO SCH (09:38)
[2017-08-09 11:09] LABS: ABG A-A DIFF O2 593.2 mmHg (10-20.0); ABG BASE EXCESS 2.5 mmol/L (-2.0-3.0); ABG HCO3 25.8 mmol/L (22.0-26.0); ABG OXYHEMOGLOBIN 85.2 % (94.0-100.0); ABG PCO2 59 mmHg (35-45); ABG PH 7.308 (7.35-7.450); ALLEN TEST, BLOOD GAS Positive; TEMPERATURE, FAHRENHEIT, BG 98.7 FAHREN (96.0-98.6)
[2017-08-09 11:10] LABS: INSIPIRATORY PRESSURE, BG 26 cm H2O
[2017-08-09] MEDS ORDERED: *CLINICAL-CEFEPIME DOSING CLINICAL ONE ×2 (11:30)
[2017-08-09] MEDS: CEFEPIME HCL 1 GM in DEXTROSE 5%-WATER 50 ML IV SCH ×2 (13:42→20:43)
[2017-08-09] MEDS: NOREPINEPHRINE 4 MG/D5%-WATER 250 ML IV PRN ×2 (15:37→22:32)
[2017-08-09] MEDS ORDERED: DOPamine HCL 400 MG/D5%-WATER 0 ML IV ONE (16:01)
[2017-08-09] MEDS ORDERED: VASOPRESSIN 100 UNITS in DEXTROSE 5%-WATER 245 ML IV PRN (16:08)
[2017-08-09] MEDS: OXYGEN THERAPY IH SCH ×2 (20:19→20:42)
[2017-08-09] MEDS ORDERED: SODIUM CHLORIDE 0.9% 250 ML IV ONE (21:12)
[2017-08-09] MEDS ORDERED: PROPOFOL 1% 20 ML VIAL IVP ONE (23:59)
[2017-08-10 08:22] LABS: GLUCOSE,POINT OF CARE 89 MG/DL (70-110)
== END 2017-08-10 | disposition expired | DRG 4 ==
LOC: EMS 07:55 → ICU 09:47
PROVIDERS: ADMIT Internal Medicine; ATTEND Internal Medicine
PROC: 5A1955Z Respiratory Ventilation, Greater than 96 Consecutive Hours (ICD-10-PCS; principal; 2017-07-20)
PROC: 0BH17EZ Insertion of Endotracheal Airway into Trachea, Via Natural or Artificial Opening (ICD-10-PCS; 2017-07-20)
PROC: 02HV33Z Insertion of Infusion Device into Superior Vena Cava, Percutaneous Approach (ICD-10-PCS; 2017-07-21)
PROC: B548ZZA Ultrasonography of Superior Vena Cava, Guidance (ICD-10-PCS; 2017-07-21)
PROC: 0B110F4 Bypass Trachea to Cutaneous with Tracheostomy Device, Open Approach (ICD-10-PCS; 2017-08-03)
PROC: 0DH63UZ Insertion of Feeding Device into Stomach, Percutaneous Approach (ICD-10-PCS; 2017-08-03)
PROC: 0W9930Z Drainage of Right Pleural Cavity with Drainage Device, Percutaneous Approach (ICD-10-PCS; 2017-08-08)
DX: A41.9 Sepsis, unspecified organism (principal); I21.4 Non-ST elevation (NSTEMI) myocardial infarction; I46.9 Cardiac arrest, cause unspecified; J69.0 Pneumonitis due to inhalation of food and vomit; E43 Unspecified severe protein-calorie malnutrition; G93.1 Anoxic brain damage, not elsewhere classified; I50.23 Acute on chronic systolic (congestive) heart failure; R13.10 Dysphagia, unspecified; J96.01 Acute respiratory failure with hypoxia; E87.0 Hyperosmolality and hypernatremia; I47.2 Ventricular tachycardia; J44.1 Chronic obstructive pulmonary disease with (acute) exacerbation; J93.9 Pneumothorax, unspecified; Z99.11 Dependence on respirator [ventilator] status; E78.00 Pure hypercholesterolemia, unspecified; G47.33 Obstructive sleep apnea (adult) (pediatric); I48.0 Paroxysmal atrial fibrillation; E78.5 Hyperlipidemia, unspecified; I11.0 Hypertensive heart disease with heart failure; I25.10 Atherosclerotic heart disease of native coronary artery without angina pectoris; I25.5 Ischemic cardiomyopathy; E11.65 Type 2 diabetes mellitus with hyperglycemia; D63.8 Anemia in other chronic diseases classified elsewhere; M19.90 Unspecified osteoarthritis, unspecified site; R74.0 Nonspecific elevation of levels of transaminase and lactic acid dehydrogenase [LDH]; Z85.118 Personal history of other malignant neoplasm of bronchus and lung; Z85.3 Personal history of malignant neoplasm of breast; Z87.891 Personal history of nicotine dependence; Z98.61 Coronary angioplasty status; I25.2 Old myocardial infarction; Z95.810 Presence of automatic (implantable) cardiac defibrillator; Z99.81 Dependence on supplemental oxygen; Z79.899 Other long term (current) drug therapy; Z79.82 Long term (current) use of aspirin; Z90.11 Acquired absence of right breast and nipple; Z79.4 Long term (current) use of insulin; E87.6 Hypokalemia; Z88.1 Allergy status to other antibiotic agents; Z66 Do not resuscitate; Z68.28 Body mass index [BMI] 28.0-28.9, adult
CPT/HCPCS: 31500; 51702; 70450; 74000; 76700; 77012; 82805; 82962; 83605; 83735; 84100; 84132; 84443; 85007; 87040; 87070; 87081; 87086; 87106; 87205; 90471; 93005; 93306; 94002; 94003; 94640; 94644; 95816; 96365; 96366; 96368; 99291; 99292; C9113; J0282; J0330; J0692; J1160; J1265; J1644; J1650; J1940; J2060; J2250; J2270; J2370; J2543; J2704; J2765; J2920; J2930; J3010; J3370; J3480; J3490; J7030; J7040; J7050; J7060; P9046; P9047